=== PATIENT | female | born 1960 | race Caucasian/White ===

== ENCOUNTER 2018-10-12 15:44 | Outpatient (REF) | payer MEDICARE, MEDICAID, SELFPAY ==
[2018-10-12 22:30] LABS: ALT 20 U/L (12-78); AST 14 U/L (15-37); Anion Gap 10.4 mmol/L (3-11); BUN 13 mg/dL (7-18); CO2 26.6 mmol/L (21.0-32.0); CREATININE 1.19 mg/dL (0.55-1.02); Calcium 9.5 mg/dL (8.5-10.1); Chloride 104 mmol/L (98-107); Estimated GFR 46.27 (mL/min/1.73m2); Glucose 101 mg/dL (70-100); HDL Cholesterol 49 mg/dL (40-60); LDL CHOLESTEROL 184 mg/dL (<100); Potassium 4.1 mmol/L (3.5-5.1); Sodium 141 mmol/L (136-145); TSH 3.47 uIU/mL (0.358-3.74)
[2018-10-12 22:41] LABS: Creatine Kinase 55 U/L (26-192)
== END 2018-10-12 16:04 ==
LOC: NCHCN 15:44
PROVIDERS: PCP Nurse Practitioner Family; Visit Provider Nurse Practitioner Family
DX: E78.00 Pure hypercholesterolemia, unspecified (principal); R42 Dizziness and giddiness; R20.9 Unspecified disturbances of skin sensation; K21.9 Gastro-esophageal reflux disease without esophagitis; K22.2 Esophageal obstruction
CPT/HCPCS: 80048; 82550; 83721; 83718; 84443; 84450; 84460

== ENCOUNTER 2018-12-10 15:54 | Outpatient (REF) | payer MEDICARE, MEDICAID, SELFPAY ==
[2018-12-10 21:48] LABS: ALT 23 U/L (12-78); AST 14 U/L (15-37); HDL Cholesterol 66 mg/dL (40-60); LDL CHOLESTEROL 105 mg/dL (<100)
[2018-12-10 22:18] LABS: Creatine Kinase 47 U/L (26-192)
== END 2018-12-10 16:14 ==
LOC: NCHCN 15:54
PROVIDERS: PCP Nurse Practitioner Family; Visit Provider Nurse Practitioner Family
DX: R42 Dizziness and giddiness (principal); R20.9 Unspecified disturbances of skin sensation; E78.00 Pure hypercholesterolemia, unspecified; K21.9 Gastro-esophageal reflux disease without esophagitis; M79.7 Fibromyalgia
CPT/HCPCS: 82550; 83721; 83718; 84450; 84460

== ENCOUNTER 2019-08-02 12:37 | Outpatient (REF) | payer MEDICARE, MEDICAID, SELFPAY ==
[2019-08-02 21:59] LABS: Anion Gap 9.1 mmol/L (3-11); BUN 10 mg/dL (7-18); CO2 27.9 mmol/L (21.0-32.0); CREATININE 0.93 mg/dL (0.55-1.02); Calcium 9.4 mg/dL (8.5-10.1); Chloride 106 mmol/L (98-107); Glucose 98 mg/dL (70-100); Sodium 143 mmol/L (136-145); Vitamin B12 1083 pg/mL (193-986)
== END 2019-08-02 12:57 ==
LOC: NCHCN 12:37
PROVIDERS: PCP Nurse Practitioner Family; Visit Provider Nurse Practitioner Family
DX: R60.9 Edema, unspecified (principal)
CPT/HCPCS: 80048; 82607

== ENCOUNTER 2020-05-01 15:42 | Outpatient (REF) | payer OTHER, MEDICAID, SELFPAY ==
[2020-05-01 19:23] LABS: Abs Immature Grans 0.01 10^3/uL (0.0-0.06); Absolute Basophil Count 0.06 10^3/uL (0.0-0.2); Absolute Eosinophil Count 0.13 10^3/uL (0.0-0.7); Absolute Lymphocyte Count 2.69 10^3/uL (1.2-3.4); Absolute Monocyte Count 0.43 10^3/uL (0.1-0.8); Absolute Neutrophil Count 3.83 10^3/uL (1.2-6.7); Basophils % 0.8; Eosinophils % 1.8; HCT 43.4 % (36.0-46.0); HGB 14.5 g/dL (11.2-15.7); Immature Grans % 0.1; Lymphocytes % 37.6; MCH 31.2 pg (27.0-33.0); MCHC 33.4 % (32.0-36.0); MCV 93.3 fL (80-95); MPV 10.4 fL (8.0-11.0); Neutrophils % 53.7; Nucleated RBC 0 %; Platelet Count 261 10^3/uL (130-400); RBC 4.65 10^6/uL (3.93-5.22); RDW 11.9 % (11.7-14.6); RDW-SD 41.2 fL; WBC 7.15 10^3/uL (4.4-10.8)
[2020-05-01 20:30] LABS: ALT 20 U/L (14-59); AST 16 U/L (15-37); Alkaline Phosphatase 120 U/L (46-116); Anion Gap 10.8 mmol/L (3-11); BUN 15 mg/dL (7-18); Bilirubin, Total 0.4 mg/dL (0.2-1.0); CO2 25.2 mmol/L (21.0-32.0); CREATININE 1.08 mg/dL (0.55-1.02); Calcium 9.3 mg/dL (8.5-10.1); Chloride 105 mmol/L (98-107); Estimated GFR 51.58 (mL/min/1.73m2); Ferritin 55 ng/mL (8-252); Glucose 89 mg/dL (74-106); HDL Cholesterol 64 mg/dL (40-60); LDL CHOLESTEROL 128 mg/dL (<100); Potassium 3.9 mmol/L (3.5-5.1); Sodium 141 mmol/L (136-145); Total Protein 6.9 g/dL (6.4-8.2)
[2020-05-01 20:36] LABS: Vitamin D 25 Total 37.1 ng/ml (30-100)
[2020-05-01 20:42] LABS: Creatine Kinase 93 U/L (26-192)
== END 2020-05-01 16:02 ==
LOC: NCHCN 15:42
PROVIDERS: PCP Nurse Practitioner Family; Visit Provider Nurse Practitioner Family
DX: R53.83 Other fatigue (principal); E78.00 Pure hypercholesterolemia, unspecified; K21.9 Gastro-esophageal reflux disease without esophagitis; D64.9 Anemia, unspecified; M16.11 Unilateral primary osteoarthritis, right hip; M85.88 Other specified disorders of bone density and structure, other site
CPT/HCPCS: 80053; 82306; 82550; 83721; 82728; 83718; 84443; 85025

== ENCOUNTER 2020-11-08 19:59 | Outpatient (REF) | payer OTHER, MEDICAID, SELFPAY ==
[2020-11-08 16:14] LABS: Anion Gap 12.3 mmol/L (3-11); BUN 10 mg/dL (7-18); CO2 25.7 mmol/L (21.0-32.0); Calcium 9.4 mg/dL (8.5-10.1); Chloride 105 mmol/L (98-107); Estimated GFR 56.18 (mL/min/1.73m2); Glucose 89 mg/dL (74-106); Potassium 4.1 mmol/L (3.5-5.1); Sodium 143 mmol/L (136-145); Vitamin B12 556 pg/mL (193-986)
== END 2020-11-08 20:00 | disposition home or self-care (01) ==
LOC: NCHCN 19:59
PROVIDERS: PCP Nurse Practitioner Family; Visit Provider Nurse Practitioner Family
DX: Z79.899 Other long term (current) drug therapy
CPT/HCPCS: 80048; 82607

== ENCOUNTER 2021-05-14 08:58 | Outpatient (REF) | payer OTHER, MEDICAID, SELFPAY ==
[2021-05-14 16:02] LABS: ALT 25 U/L (14-59); AST 19 U/L (15-37); Calculated LDL 96 mg/dL (<100); Cholesterol 190 mg/dL (<200); HDL Cholesterol 73 mg/dL (40-60); Triglyceride 107 mg/dL (<150)
[2021-05-14 16:18] LABS: Creatine Kinase 87 U/L (26-192)
== END 2021-05-14 08:59 | disposition home or self-care (01) ==
LOC: NCHCN 08:58
PROVIDERS: PCP Nurse Practitioner Family; Visit Provider Nurse Practitioner Family
DX: E78.00 Pure hypercholesterolemia, unspecified (principal)
CPT/HCPCS: 80061; 82550; 84450; 84460

== ENCOUNTER 2022-03-12 15:27 | Outpatient (REF) | payer MEDICARE, MEDICAID, SELFPAY ==
[2022-03-12 15:08] LABS: Abs Immature Grans 0.01 10^3/uL (0.0-0.06); Absolute Basophil Count 0.07 10^3/uL (0.0-0.2); Absolute Eosinophil Count 0.15 10^3/uL (0.0-0.7); Absolute Lymphocyte Count 2.39 10^3/uL (1.2-3.4); Absolute Monocyte Count 0.43 10^3/uL (0.1-0.8); Absolute Neutrophil Count 3.91 10^3/uL (1.2-6.7); Eosinophils % 2.2; HCT 43.3 % (36.0-46.0); Immature Grans % 0.1; Lymphocytes % 34.3; MCH 31.7 pg (27.0-33.0); MCHC 34.6 % (32.0-36.0); MCV 92 fL (80-95); MPV 10.6 fL (8.0-11.0); Monocytes % 6.2; Neutrophils % 56.2; Platelet Count 279 10^3/uL (130-400); RBC 4.73 10^6/uL (3.93-5.22); RDW 11.8 % (11.7-14.6); RDW-SD 39.6 fL; WBC 6.96 10^3/uL (4.4-10.8)
[2022-03-12 15:31] LABS: ESR 18 mm/hr (0-30)
[2022-03-12 15:44] LABS: ALT 24 U/L (14-59); AST 19 U/L (15-37); Albumin 3.8 g/dL (3.4-5.0); Alkaline Phosphatase 121 U/L (46-116); Anion Gap 7.1 mmol/L (3-11); BUN 12 mg/dL (7-18); Bilirubin, Total 0.3 mg/dL (0.2-1.0); C-Reactive Protein 0.05 mg/dL (0.0-0.3); CO2 25.9 mmol/L (21.0-32.0); Calcium 9.1 mg/dL (8.5-10.1); Chloride 107 mmol/L (98-107); Glucose 93 mg/dL (74-106); Potassium 4.2 mmol/L (3.5-5.1); Sodium 140 mmol/L (136-145); Total Protein 7.2 g/dL (6.4-8.2)
[2022-03-13 11:13] LABS: Lyme Ab w Rflx to Lyme Confirm Negative (Negative)
[2022-03-14 23:01] LABS: Anaplasma phagocytophilum Negative (Negative); B. miyamotoi PCR Negative (Negative); Babesia divergens/MO-1 Negative (Negative); Babesia duncani Negative (Negative); Babesia microti Negative (Negative); Ehrlichia chaffeensis Negative (Negative); Ehrlichia ewingii/canis Negative (Negative); Ehrlichia muris eauclairensis Negative (Negative)
== END 2022-03-12 15:28 | disposition home or self-care (01) ==
LOC: NCHCN 15:27
PROVIDERS: PCP Nurse Practitioner Family; Visit Provider Nurse Practitioner Family
DX: T14.8XXA Other injury of unspecified body region, initial encounter (principal); W57.XXXA Bitten or stung by nonvenomous insect and other nonvenomous arthropods, initial encounter
CPT/HCPCS: 80053; 85652; 87798; 85025; 86140; 86618

== ENCOUNTER 2022-04-02 20:10 | Outpatient (REF) | payer MEDICARE, MEDICAID, SELFPAY ==
[2022-04-02 16:12] LABS: HDL Cholesterol 67 mg/dL (40-60); LDL CHOLESTEROL 114 mg/dL (<100)
[2022-04-02 16:24] LABS: Creatine Kinase 63 U/L (26-192)
== END 2022-04-02 20:11 | disposition home or self-care (01) ==
LOC: NCHCN 20:10
PROVIDERS: PCP Nurse Practitioner Family; Visit Provider Nurse Practitioner Family
DX: E78.00 Pure hypercholesterolemia, unspecified (principal); R07.89 Other chest pain
CPT/HCPCS: 82550; 83721; 83718

== ENCOUNTER 2022-05-13 18:56 | Outpatient (REF) | payer MEDICARE, MEDICAID, SELFPAY ==
[2022-05-13 17:56] LABS: ALT 27 U/L (14-59); AST 23 U/L (15-37); HDL Cholesterol 73 mg/dL (40-60); LDL CHOLESTEROL 125 mg/dL (<100)
[2022-05-13 18:21] LABS: Creatine Kinase 124 U/L (26-192)
== END 2022-05-13 18:57 | disposition home or self-care (01) ==
LOC: NCHCN 18:56
PROVIDERS: PCP Nurse Practitioner Family; Visit Provider Nurse Practitioner Family
DX: E78.00 Pure hypercholesterolemia, unspecified (principal)
CPT/HCPCS: 82550; 83721; 83718; 84450; 84460

== ENCOUNTER 2022-06-12 15:13 | Outpatient (REF) | payer MEDICARE, MEDICAID, SELFPAY ==
--- NOTE | 2022-06-12 11:30 | PAPFT_PTH ---
PATIENT: Cortney Smallwood LOC: [facility]#:[id number] AGE/SX: 61/F ROOM: RE06/12/[address]: Safia Pedroza : 1960 BED: DIS: 06/12/2022 SPEC #: [id number] RECD: 06/12/22 17:50 STATUS: BELL REJama #: [id number] ANTHONY: 06/12/22 11:[address]: Safia Pedroza DEPT: COUNT INCLUDES THE [facility] Cytology RECD BY: Manasa Barrera ENTERED: 06/12/22 17:50 SP TYPE: PAPFT OTHR DR: Anitha Perry Tissues: 1 - CX/ENDOCX FOR PAP SMEARS Procedures: PAP THIN PREP/UVM Screening HPV DNA PROBE Comments: [id number]
== END 2022-06-12 15:14 | disposition home or self-care (01) ==
LOC: NCHCN 15:13
PROVIDERS: PCP Nurse Practitioner Family; Visit Provider Nurse Practitioner Family
DX: Z12.4 Encounter for screening for malignant neoplasm of cervix (principal); Z11.51 Encounter for screening for human papillomavirus (HPV); Z01.419 Encounter for gynecological examination (general) (routine) without abnormal findings
CPT/HCPCS: 88142; 87624

== ENCOUNTER 2022-09-10 13:29 | Outpatient (REF) | payer MEDICARE, MEDICAID, SELFPAY ==
[2022-09-10 16:27] LABS: Ferritin 81 ng/mL (8-252); Magnesium 2.3 mg/dL (1.8-2.4); TSH 0.74 uIU/mL (0.36-3.74)
== END 2022-09-10 13:30 | disposition home or self-care (01) ==
LOC: NCHCN 13:29
PROVIDERS: PCP Nurse Practitioner Family; Visit Provider Nurse Practitioner Family
DX: G47.00 Insomnia, unspecified (principal)
CPT/HCPCS: 82306; 82728; 83735; 84443

== ENCOUNTER 2023-04-15 10:29 | Outpatient (REF) | payer MEDICARE, SELFPAY ==
[2023-04-15 16:50] LABS: Vitamin D 25 Total 34.8 ng/mL (30-100)
[2023-04-15 16:53] LABS: Ferritin 69 ng/mL (8-252); Vitamin B12 324 pg/mL (193-986)
== END 2023-04-15 10:30 | disposition home or self-care (01) ==
LOC: NCHCN 10:29
PROVIDERS: PCP Nurse Practitioner Family; Visit Provider Nurse Practitioner Family
DX: G47.00 Insomnia, unspecified (principal)
CPT/HCPCS: 82306; 82607; 82728

== ENCOUNTER 2023-07-14 13:32 | Outpatient (REF) | payer MEDICARE, SELFPAY ==
[2023-07-14 17:09] LABS: ALT 19 U/L (14-59); AST 18 U/L (15-37); Creatine Kinase 61 U/L (26-192); HDL Cholesterol 68 mg/dL (40-60); LDL CHOLESTEROL 96 mg/dL (<100)
== END 2023-07-14 13:33 | disposition home or self-care (01) ==
LOC: NCHCN 13:32
PROVIDERS: PCP Nurse Practitioner Family; Visit Provider Nurse Practitioner Family
DX: E78.00 Pure hypercholesterolemia, unspecified (principal)
CPT/HCPCS: 82550; 83721; 83718; 84450; 84460

== ENCOUNTER 2024-08-09 14:51 | Outpatient (REF) | payer MEDICARE, SELFPAY ==
--- OUTSIDE RECORDS SUMMARY | 2024-08-09 15:03 | XMS_ITS | Continuity of Care Document ---
Author Organization [facility] Ambulatory Clinics Address [address] [place] [address] Care Team Providers Care Protein Scientist Name Role Phone MASON KENDRICK Primary Care Physician Encounter [facility] FIN NBR [id number] Date(s): 07/29/23 - 07/29/23 [facility] Ambulatory Clinics [address] [place] [address]- Encounter Diagnosis Left hip pain(Discharge Diagnosis) - 07/29/23 Discharge Disposition: Home or Self Care Attending Physician: Kelsey Castellanos APRN, Referring Physician: MASON KENDRICK Allergies, Adverse Reactions, Alerts Substance Reaction Severity Status morphine Rash Vomiting Moderate Active Assessment and Plan Future Appointments Medications amitriptyline 100 mg oral tablet 4 EA, TAKE 1 TO 2 TABLETS BY MOUTH EVERY NIGHT, 0 Refill(s) Start Date: 06/21/22 Status: Ordered aspirin 81 mg oral capsule 1 Unknown, 0 Refill(s) Start Date: 06/21/22 Status: Ordered B-12 2500 mcg oral tablet 0 Refill(s) Start Date: 06/21/22 Status: Ordered cephalexin 500 mg oral capsule See Instructions, Take 4 capsules by mouth one hour prior to dental work., # 4 cap, 3 Refill(s), Pharmacy: [facility] [employer] [employer] [facility] #[id number] Start Date: 07/02/22 Status: Ordered diclofenac 1% topical gel 0 Refill(s) Start Date: 06/21/22 Status: Ordered Flonase 50 mcg/inh nasal spray 2 sprays, Nasal, BID, 0 Refill(s) Start Date: 06/21/22 Status: Ordered omeprazole 40 mg oral delayed release capsule 180 EA, TAKE 1 CAPSULE BY MOUTH TWICE DAILY, 0 Refill(s) Start Date: 06/21/22 Status: Ordered simvastatin 40 mg oral tablet 1 Unknown, 0 Refill(s) Start Date: 06/21/22 Status: Ordered traZODone 100 mg oral tablet 100 mg = 1 tab, Oral, Daily, 0 Refill(s) Start Date: 07/29/23 Status: Ordered Tylenol Extra Strength 500 mg oral tablet 1,000 mg = 2 tab, Oral, every 6 hr, PRN as needed for pain, 0 Refill(s) Start Date: 07/29/23 Status: Ordered Vitamin D3 1000 intl units oral capsule 2 Unknown, 0 Refill(s) Start Date: 06/21/22 Status: Ordered Zocor 20 mg oral tablet 1 Unknown, 0 Refill(s) Start Date: 06/21/22 Status: Ordered Problem List Condition Confirmation Course Effective Dates Status H ealth Status Informant History of total knee arthroplasty Confirmed Active Osteoarthritis of knee Confirmed Active Osteoarthritis of left knee joint Confirmed Active Procedures Procedure Date Related Diagnosis Body Site Status Arthroscopy of knee with men iscus repair 1 06/11/17 Completed Removal of gallbladder 11/05/90 Co mpleted Tubal ligation 09/03/90 Completed 1CHONDROPLASTY Vital Signs Most recent to oldest [Reference Range]: 1 Peripheral Pulse Rate [60-100 bpm] 68 bp m (07/29/23 9:32 AM) Blood Pressure [90-140/60-90 mmHg] 110/6 4mmHg (07/29/23 9:32 AM) Mean Arterial Pressure, Cuff [70-110 mmH g] 79 mmHg (07/29/23 9:32 AM) Social History Social History Type Response Tobacco Never tobacco user T obacco Use:. Sex Hospital Discharge Instructions Follow Up Care 07/22/2023 15:19:21 With:Kelsey Castellanos APRN, Address: [address] [place], [place] [address]- When:Within 3 Week(s) Comments:Kelsey will call in 3 weeks Physician Outpatient Note * Kelsey Castellanos APRN,: PERFORM Event Display: Office Clinic Note Physician Authored Date: [id number] ALTAGRACIA ZAMAN :1960 Age:62 years Sex:Female Visit Date:07/29/2023 Primary Care Physician: MASON KENDRICK Chief Complaint Left Hip Pain radiating into groin History of Present Illness Altagracia is a very pleasant 62-year-old woman who is well-known??practice. ??She is currently referred back for evaluation of left buttock and hip pain.?? She states she has had trouble in this region for several weeks now.?? There was no precipitating injury or trauma. ??She points to the buttock in the area of the SI joint to describe where the majority of the pain is located, but when it is severe it radiates to the groin.?? She states her range of motion is okay, but she has pain with standing, walking and sitting.?? When pain is severe it can wake her at night.?? In terms of treatment she has used a heating pad??and Tylenol. ??She was recently started on Celebrex which she states has been helpful.?? She is scheduled to see our pain service, but not for several months. Review of Systems Constitutional:?No??fevers,?No??chills,?No??sweats Respiratory:?No??shortness of breath,?No??cough Cardiovascular:?No??Chest pain,?No??palpitations,?No??syncope Gastrointestinal:?Nonausea,?No??vomiting,?No??diarrhea Musculoskeletal:??No??back pain,??No??neck pain,??Positive for??left groin/buttock pain,??No??muscle pain,??No??decreased range of motion Integumentary:?No??rash,?No??pruritus,?No??abrasions Neurologic: Alert & oriented X 4 Psychiatric:?No??anxiety,?No??depression Physical Exam Vitals & Measurements HR:??68??(Peripheral)?? BP:??110/64?? SpO2:??97%?? Pain Score:??8?? The patient is alert and oriented x3. ??Pleasant and cooperative. ??Well-dressed and well-groomed.?? Appears stated age and is well-nourished and well- developed.?? Examination of the left hip is without deformity. ??Skin is intact. ??There is no erythema or warmth. ??No signs or symptoms of infection.?? There is point tenderness overlying the greater trochanter. ??She has full range of motion of the hip without exacerbation of groin or thigh pain. ??Thigh and calf compartments are soft and nontender.?? The left lower extremity is neurovascular intact distally. Procedure Risks and benefits of injection discussed with the patient today. ??Patient verbalized understanding and would like to proceed. The??left??hip is exposed, the ASIS is identified with ultrasound, I moved distally to identify thefemoroacetabular joint. ??The probe was then moved longitudinally to again identify the femoroacetabular joint and the attachment of the hip capsule at the femoral neck. ??The skin is prepped with ChloraPrep and 4 cc of 1% lidocaine with epi is infiltrated to the skin and the deeper tissues. ??The skin is reprepped with ChloraPrep, 22-gauge spinal needle is introduced into the hip capsule at the femoral neck via ultrasound guidance. ??The hip is then injected intra-articularly with a 4??cc 1% lidocaine plain and 40 mg of Kenalog.?? The patient tolerated the procedure very well and a dry, sterile dressing is applied. ??The patient is asked to avoid bathing/showering/swimming/hot tubs for 24 hours??to decrease infection risk.?? Assessment/Plan 1.??Left hip pain??M25.552 Altagracia is a pleasant 62-year-old woman who has been struggling with left buttock and groin pain for several weeks. ??Recent x-rays have shown??mild arthritis at the hip joint.?? However based on her history and exam I feel that likely the primary pain generator is the lumbar spine??and SI joint region. ??This is discussed with the patient.?? However she does have groin pain, so I did offer her an ultrasound-guided intra-articular injection??as both a diagnostic and therapeutic approach. ??Shewould like to give this a try today.?? If she responds to this injection, then we can focus treatment on the left hip joint. ??If she does not respond to the injection,??then??treatment will be focused on the lumbar spine??and SI joint region. ??I have encouraged her to keep her appointment with the pain service. ??She will give me a call in a few weeks to let me know how she has responded to thehip injection.?? She may continue with all other supportive care. ??She is in agreement with the above plan and is encouraged to contact the office at anytime with questions or concerns. ??I spent 20minutes in reviewing the record, seeing the patient and documenting in the medical record. Ordered: Kenalog-40, 40 mg, Intra-articular, Once, First Dose: 07/29/23 10:12:00 EST, Stop Date: 07/29/23 10:12:00 EST, Physician Stop, Routine ?? Follow Up Instructions With When Contact Information Kelsey Castellanos APRN, In [address] [place] [address]- Additional Instructions: Kelsey will call in 3 weeks Problem List/Past Medical History Ongoing History of total knee arthroplasty Osteoarthritis of knee Osteoarthritis of left knee joint Historical No qualifying data Procedure/Surgical History ???Arthroscopy of knee with meniscus repair (06/12/2017)???Removal of gallbladder (11/06/1990)???Tubal ligation (09/04/1990) Medications amitriptyline 100 mg oral tablet aspirin 81 mg oral capsule B-12 2500 mcg oral tablet cephalexin 500 mg oral capsule, See Instructions, 3 refills diclofenac 1% topical gel Flonase 50 mcg/inh nasal spray, 2 sprays, Nasal, BID Kenalog-40, 40 mg, Intra-articular, Once omeprazole 40 mg oral delayed release capsule simvastatin 40 mg oral tablet traZODone 100 mg oral tablet, 100 mg= 1 tab, Oral, Daily Tylenol Extra Strength 500 mg oral tablet, 1000 mg= 2 tab, Oral, every 6 hr, PRN Vitamin D3 1000 intl units oral capsule Zocor 20 mg oral tablet Allergies morphine??(Rash, Vomiting) Social History Alcohol Past Electronic Cigarette/Vaping Electronic Cigarette Use: Never. Home/Environment Home equipment: CPAP unit. Substance Use Marijuana, Daily Tobacco Never tobacco user Tobacco Use:. Family History Diabetes mellitus: Mother. Hypertension: Mother. Diagnostic Results Diagnostic Study Interpretation: X-rays of the pelvis and left hip from July 16, 2023 from [facility] have been pushed to the [facility] and are personally reviewed.?? No acute fracture or dislocation.?? Femoroacetabular joint space iswell-preserved, but small osteophytes are noted indicating early degenerative changes. Electronically Signed on 07/29/23 10:13 AM Kelsye Castellanos APRN, Patient Care team information Care Team Personnel Name: MASON KENDRICK Position: No Access Member Role: Primary Care Physician Address: Address: [address] [place], [place] [address] Name: Carmina Becker APRN Position: Physician Member Role: Nurse Practitioner Address: Address: [address] [place] [id number]
--- OUTSIDE RECORDS SUMMARY | 2024-08-09 15:03 | XMS_ITS | Encounter Summary ---
Author Organization [facility] Address [address] [place] [address] Care Team Providers Care Instructor Trainer Canine Service Name Role Phone GarrardAnitha malloy JOSÉ MANUEL Primary Care Provider [phone] Encounter Details Date Type Department Care Team (Late st Contact Info) Description 05/24/2013 Results Only [facility] Laboratory Services - [facility] ([facility]) [address] [place], [place] [id number] Ld Salazar MD [address] [place] [address] Social History Tobacco Use Types Packs/Day Years Used Date Smoking Tobacco: Never Assessed Comments Unknown Sex and Gender Information Value Date Recorded Sex Assigned at Not on file Legal Sex Female 18:27 EST Gender Identity Not on file Sexual Orientation Not on file documented as of this encounter Plan of Treatment Not on file documented as of this encounter Procedures Procedure Name Priority Date/Time Associated Diagnosis Comments SURGICAL PATHOLOGY Routine 05/24/2013 10 :14 EDT documented in this encounter Results * SURGICAL PATHOLOGY (05/24/2013 10:14 EDT) Pathology Report: SURGICAL PATHOLOGY REPORT Reports generated via electronic interface contain original data; however they are lacking the format of the original report. Caution should be taken when reading/interpreti ng unformatted reports. Name: ? ALTAGRACIA ZAMAN ? Accession #: ? [id number] ? : ? 1960 (Age: 52) ??F ? Collect Date: ? 05/24/2013 ? Location: ? [facility] ? Receive Date: ? 05/25/2013 ? Provider: LD SALAZAR MD Copy to: ANITHA VALE LAST TURNER ? Final Pathologic Diagnosis: COLON, SIGMOID, POLYPS, BIOPSIES: - ??Hyperplastic polyps with mucosal prolapse changes and prominent lymphoid aggregates. ??See comment. Comment: ? Deeper levels have been examined. Document reviewed and electronically signed by: ELIZABETH HOWE MD Report ??Date: 05/31/2013 09:43 By the signature above, the attending physician certifies that he/she has personally conducted a gross and/or microscopic examination of the described specimens and rendered or confirmed the above diagnosis. Specimen(s) Received: Sigmoid polyps x3 Clinical History: Constipation Gross Description: ? Received in formalin labelled with proper patient identification (initials D, G) and 1. sigmoid polyps x3 are three pink-jackson tissues (0.4 x 0.2 x 0.2 cm to 0.6 x 0.3 x 0.2 cm). Entirely submitted in 1. Genesis Estrada 05/25/2013 01:54 PM End of Report [facility] 05/24/2013 10:1 4 EDT 05/25/2013 10:14 EDT us Ld Salazar MD PATHOLOGY ORDERABLES Final Resul t [facility] [address] [place] [address] documented in this encounter Visit Diagnoses Not on filedocumented in this encounter Care Teams Instructor Trainer Canine Service Relationship Specialty Start Date End Date Anitha Vale NP [facility] [address] [place] [address] PCP - General 04/14/13 01/12/22 documented as of this encounter
--- OUTSIDE RECORDS SUMMARY | 2024-08-09 15:03 | XMS_ITS | Referral Summary ---
Author Organization [facility] Address [address] [place] [address] Care Team Providers Care Passenger Flagman Name Role Phone Safia Pedroza TECHNICIAN TERMINAL AND REPEATER Primary Care Provider [phone] Social History Tobacco Use Types Packs/Day Years Used Date Smoking Tobacco: Never Assessed Comments Unknown Sex and Gender Information Value Date Recorded Sex Assigned at Not on file Legal Sex Female 18:27 EST Gender Identity Not on file Sexual Orientation Not on file Plan of Treatment Not on file Insurance [employer] MEDICARE [employer] MED[employer]ARE Care Teams Passenger Flagman Relationship Specialty Start Date End Date Safia Pedroza NP [address] [place] [address] PCP - General 01/13/22
--- OUTSIDE RECORDS SUMMARY | 2024-08-09 15:03 | XMS_ITS | Encounter Summary ---
Author Organization [facility] Address [address] [place] [address] Care Team Providers Care Cement Mason Apprentice Name Role Phone Unavailable Primary Care Provider Unavailabl e Encounter Details Date Type Department Care Team (Late st Contact Info) Description 08/29/2003 Results Only [facility] - Map conversion [address] [place] [address] Anitha Vale, THREADING MACHINE OPERATOR [facility] [address] [place], [place] [phone] Social History Tobacco Use Types Packs/Day Years [...] Procedure Name Priority Date/Time Associated Diagnosis Comments CYTOPATHOLOGY Routine 08/29/2003 0:00 EST documented in this encounter Results * CYTOPATHOLOGY (08/29/2003 0:00 EST) Pathology Report: CYTOPATHOLOGY REPORT Reports generated via electronic interface contain original data; however they are lacking the format of the original report. Caution should be taken when reading/interpreti ng unformatted reports. Name: ? ALTAGRACIA ZAMAN ? Accession #: ? [id number] : ? 1960 (Age: 43) ??F ?Collect Date: ? 08/29/2003 Location: ? [facility] ? Receive Date: ? 08/31/2003 Provider: ?ANITHA VALE THREADING MACHINE OPERATOR Copy to: ? Specimen/Source: ?ThinPrep Pap Test, Cervix/Endocervix Last Menstrual Period: ? 08/09/03 ? SPECIMEN ADEQUACY ? Satisfactory for Evaluation - transformation zone component present - scant squamous epithelial component secondary to excessive mucus GENERAL CATEGORIZATION ? Negative for Intraepithelial Lesion or Malignancy ? Document reviewed and electronically signed by: ? LIZ Fraser(ASCP) ? Report Date: ??09/01/2003 11:21 End of Report [facility] 08/29/2003 08/31/2003 us Anitha Vale THREADING MACHINE OPERATOR PATHOLOGY ORDERABLES Final Resu lt [facility] [address] [place] [address] documented in this encounter Visit Diagnoses Not on filedocumented in this encounter
--- OUTSIDE RECORDS SUMMARY | 2024-08-09 15:03 | XMS_ITS | Encounter Summary ---
Author Organization [facility] Address [address] [place] [address] Care Team Providers Care Market Reporter Name Role Phone Anitha Vale ASSISTANT PRODUCT MANAGER Primary Care Provider [phone] Encounter Details Date Type Department Care Team (Late st Contact Info) Description 06/02/2017 Results Only [facility] [phone] Anitha Vale, ASSISTANT PRODUCT MANAGER [facility] [address] [place], [place] [phone] Social History Tobacco Use Types Packs/Day Years [...] Procedure Name Priority Date/Time Associated Diagnosis Comments PAP TEST- RESULT ONLY Routine 06/02/2017 0:00 EDT documented in this encounter Results * PAP TEST- RESULT ONLY (06/02/2017 0:00 EDT) Pathology Report: CYTOPATHOLOGY REPORT Reports generated via electronic interface contain original data; however they are lacking the format of the original report. Caution should be taken when reading/interpreti ng unformatted reports. Name: ? ALTAGRACIA ZAMAN ? Accession #: ? [id number] ? : ? 1960 (Age: 56) ??F ?Collect Date: ? 06/02/2017 ? Location: ? [facility] ? Receive Date: ? 06/05/2017 ? Provider: ANITHA VALE ASSISTANT PRODUCT MANAGER Copy to: ? Final Report SPECIMEN ADEQUACY ? Satisfactory for Evaluation - transformation zone component present GENERAL CATEGORIZATION ? Negative for Intraepithelial Lesion or Malignancy ?? Last Menstrual Period: 7 + years Hormonal/Contracep tive status: None Other: Professor Of Music Clinical/Treatment Hx - None Specimen/Source: ??Pap Test, Cervix/Endocervix, ThinPrep Imaging System with manual evaluation Document reviewed and electronically signed by: ? Pete Zuniga, CT(ASCP) ? Report ??Date: 06/13/2017 15:03 HPV with Pap Test ? Date Ordered: ? 06/13/2017 ? Status: ?? Signed Out ?Date Complete: ? 06/16/2017 ? By: ??System Interface ? Date Reported: ? 06/16/2017 ? Interpretation RESULT: Negative for HPV. No E6 or E7 mRNA is detected from HPV types 16,18,31,33,35, 39,45,51,52,56,58, 59,66, and 68 by yard specialist mediated amplification. Comments Document reviewed and electronically signed by: ? System Interface ? Report date: 06/16/2017 By the signature above, the attending physician certifies that he/she has personally conducted a gross and/or microscopic examination of the described specimens and rendered or confirmed the above diagnosis. End of Report [facility] 06/02/2017 06/05/2017 us Anitha Vale ASSISTANT PRODUCT MANAGER PATHOLOGY ORDERABLES Final Resu lt [facility] [address] [place] [address] documented in this encounter Visit Diagnoses Not on filedocumented in this encounter Care Teams Market Reporter Relationship Specialty Start Date End Date Anitha Vale, ASSISTANT PRODUCT MANAGER [facility] [address] [place] [address] PCP - General 04/14/13 01/12/22 documented as of this encounter
--- OUTSIDE RECORDS SUMMARY | 2024-08-09 15:03 | XMS_ITS | Encounter Summary ---
Author Organization [facility] Address [address] [place] [address] Care Team Providers Care Trial Consultant Name Role Phone Unavailable Primary Care Provider Unavailabl e Encounter Details Date Type Department Care Team (Late st Contact Info) Description 04/12/2013 Results Only [facility] Laboratory Services - [facility] ([facility] [address] [place], [place] [phone] Sisi Rosas MD [address] [place] [address] [place] [address] Social History Tobacco Use Types Packs/Day Years [...] Date/Time Associated Diagnosis Comments SURGICAL PATHOLOGY Routine 04/12/2013 8:19 EDT documented in this encounter Results * SURGICAL PATHOLOGY (04/12/2013 8:19 EDT) Pathology Report: SURGICAL PATHOLOGY REPORT Reports generated via electronic interface contain original data; however they are lacking the format of the original report. Caution should be taken when reading/interpreti ng unformatted reports. Name: ? ALTAGRACIA ZAMAN ? Accession #: ? [id number] ? : ? 1960 (Age: 52) ??F ? Collect Date: ? 04/12/2013 ? Location: ? [facility] ? Receive Date: ? 04/13/2013 ? Provider: SISI ROSAS MD Copy to: SERGIO VALE HEAD GROWER ? Final Pathologic Diagnosis: ENDOMETRIUM, BIOPSY: - ??Strips of inactive endometrium with papillary syncytial metaplasia. - ??Rare strips of benign endocervical epithelium. Document reviewed and electronically signed by: ELIZABETH HOWE MD Report ??Date: 04/14/2013 15:50 By the signature above, the attending physician certifies that he/she has personally conducted a gross and/or microscopic examination of the described specimens and rendered or confirmed the above diagnosis. Specimen(s) Received: Endo bx (endometrium) Clinical History: PMB Gross Description: ? Received in formalin labelled with proper patient identification (initials D, G) and endometrium is a 1.5 x 0.8 x 0.2 cm aggregate of dark brown, slightly firm hemorrhagic tissue. The specimen is submitted entirely as 1. Koko Kline 04/13/2013 10:20 AM End of Report [facility] 04/12/2013 8:19 EDT 04/13/2013 8:19 EDT us Sisi Rosas MD PATHOLOGY ORDERABLES Final Resu lt [facility] [address] [place] [address] documented in this encounter Visit Diagnoses Not on filedocumented in this encounter
--- OUTSIDE RECORDS SUMMARY | 2024-08-09 15:03 | XMS_ITS | Encounter Summary ---
Author Organization [facility] Address [address] [place] [address] Care Team Providers Care Diesel Engine Mechanic Apprentice Name Role Phone Unavailable Primary Care Provider Unavailabl e Encounter Details Date Type Department Care Team (Late st Contact Info) Description 02/01/2013 Results Only [facility] Laboratory Services - [facility] ([facility]) [address] [place], [place] [address] Anitha Vale, JOSÉ MANUEL [facility] [address] [place], [place] [phone] Social History Tobacco Use Types Packs/Day Years [...] Diagnosis Comments PAP TEST- RESULT ONLY Routine 02/01/2013 0:00 EDT documented in this encounter Results * PAP TEST- RESULT ONLY (02/01/2013 0:00 EDT) Pathology Report: CYTOPATHOLOGY REPORT Reports generated via electronic interface contain original data; however they are lacking the format of the original report. Caution should be taken when reading/interpreti ng unformatted reports. Name: ? ALTAGRACIA ZAMAN ? Accession #: ? [id number] : ? 1960 (Age: 52) ??F ?Collect Date: ? 02/01/2013 Location: ? [facility] ? Receive Date: ? 02/02/2013 Provider: ?ANITHA VALE TEXTILE MACHINERY INSTRUCTOR Copy to: ? Specimen/Source: ?Pap Test, Source Not Provided, ThinPrep Imaging System with manual evaluation Last Menstrual Period: ? 08/26 Other: ? Additional clinical information: abnormal vaginal bleeding, spotting since 01/23/13 ? SPECIMEN ADEQUACY ? Satisfactory for Evaluation - transformation zone component present - scant squamous epithelial component GENERAL CATEGORIZATION ? Negative for Intraepithelial Lesion or Malignancy INTERPRETATION ? Reactive cellular changes associated with inflammation present (includes repair). ? Document reviewed and electronically signed by: ? TESSIE BIRMINGHAM MD ? Report Date: ??02/09/2013 13:55 End of Report [facility] 02/01/2013 02/02/2013 us Anitha Vale NP PATHOLOGY ORDERABLES Final Resu lt [facility] [address] [place] [address] documented in this encounter Visit Diagnoses Not on filedocumented in this encounter
--- OUTSIDE RECORDS SUMMARY | 2024-08-09 15:03 | XMS_ITS | Encounter Summary ---
Author Organization [facility] Address [address] [place] [address] Care Team Providers Care Fleet Driver Name Role Phone TiogaAnitha malloy JOSÉ MANUEL Primary Care Provider [phone] Encounter Details Date Type Department Care Team (Late st Contact Info) Description 02/26/2019 Results Only [facility] [phone] Alan Toledo MD [address] [place] [address] Social History Tobacco Use Types Packs/Day Years [...] Date/Time Associated Diagnosis Comments SURGICAL PATHOLOGY Routine 02/26/2019 21 :08 EDT documented in this encounter Results * SURGICAL PATHOLOGY (02/26/2019 21:08 EDT) Pathology Report: SURGICAL PATHOLOGY REPORT Reports generated via electronic interface contain original data; however they are lacking the format of the original report. Caution should be taken when reading/interpreting unformatted reports. Name: ? ALTAGRACIA ZAMAN ? Accession #: ? [id number] ? : ? 1960 (Age: 58) ??F ? Collect Date: ? 02/26/2019 ? Location: ? [facility] ? Receive Date: ? 02/26/2019 ? Provider: ALAN TOLEDO MD Copy to: ? Final Pathologic Diagnosis: A. STOMACH, ANTRUM, BIOPSIES: - One portion of antral type mucosa with reactive changes - On portion of goblet cell containing mucosa (see comment) B. RECTUM, BIOPSIES: - Hyperplastic polyp and lymphoid aggregate Comment: There is goblet cell containing mucosa with focal villiform morphology and underlying small clusters of mucinous glands. This could represent intestinal metaplasia of antral mucosa, however, it could also be normal mucosa from the pyloric region of the stomach where gastric mucosa transitions to small intestinal type mucosa. Clinical/endoscopic correlation is needed. No active inflammation is present. No dysplasia is present. Dairy Nutrition Consultant slides of this case were reviewed at the intradepartmental consultation conference. Dr. Saez 03/02/2019 9:42 AM Document reviewed and electronically signed by: LINDA SAEZ MD Report ??Date: 03/02/2019 15:59 By the signature above, the attending physician certifies that he/she has personally conducted a gross and/or microscopic examination of the described specimens and rendered or confirmed the above diagnosis. Specimen(s) Received: A. ??Antrum B. ??Rectal polyps Clinical History: Esophageal stricture, screening, history of polyps; clinical diagnosis code: K22.2, Z12.11 Gross Description: A. ?Received in formalin labelled with proper patient identification (initials D, G) and antrum are two pink-jackson tissues (0.3 x 0.2 x 0.2 cm and 0.3 x 0.3 x 0.2 cm). Entirely submitted in A1. B. ?Received in formalin labelled with proper patient identification (initials D, G) and rectal polyps are three pink-jackson tissues (0.3 x 0.2 x 0.1 cm, 0.3 x 0.2 x 0.2 cm and 0.4 x 0.2 x 0.2 cm). Entirely submitted in B1. Dr. Beard 02/27/2019 9:57 AM End of Report [facility] 02/26/2019 21:0 8 EDT 02/26/2019 21:08 EDT us Alan Toledo MD PATHOLOGY ORDERABLES Final Res ult [facility] [address] [place] [address] documented in this encounter Visit Diagnoses Not on filedocumented in this encounter Care Teams Fleet Driver Relationship Specialty Start Date End Date Anitha Perry, JOSÉ MANUEL [facility] [address] [place] [address] PCP - General 04/14/13 01/12/22 documented as of this encounter
--- OUTSIDE RECORDS SUMMARY | 2024-08-09 15:03 | XMS_ITS | Continuity of Care Document ---
Author Organization [facility] Address [address] [place] [address] Care Team Providers Care Electric Wirer Name Role Phone MASON KENDRICK Primary Care Physician Encounter [facility] NBR [id number] Date(s): 11/20/23 - 11/20/23 [facility] [address] [place] [address]- Discharge Disposition: Home or Self Care Attending Physician: Angelique Turner DO Referring Physician: MASON KENDRICK Allergies, Adverse Reactions, Alerts Substance Reaction Severity Status morphine Rash Vomiting Moderate Active Medications amitriptyline 100 mg oral tablet 4 [...] work., # 4 cap, 3 Refill(s), Pharmacy: [id number] Start Date: 07/02/22 Status: Ordered diclofenac 1% [...] Co mpleted Tubal ligation 09/03/90 Completed 1CHONDROPLASTY Social History Social History Type Response Tobacco Never tobacco user T obacco Use:. Sex Patient Care team information Care Team Personnel Name: MASON KENDRICK Position: No Access Member Role: Primary Care Physician Address: Address: [address] [place], [place] [address] Name: Carmina Becker APRN Position: Physician Member Role: Nurse Practitioner Address: Address: [address] [place] [phone]
--- OUTSIDE RECORDS SUMMARY | 2024-08-09 15:03 | XMS_ITS | Continuity of Care Document ---
Author Organization [facility] Address [address] [place] [phone] Care Team Providers Care Handle Assembler Name Role Phone MARILOUGerardo MASON Gerardo Primary Care Physician Encounter [facility] FIN NBR [id number] Date(s): 06/21/22 - 06/21/[address] [address] [place] Encounter Diagnosis Pain in left knee(Discharge Diagnosis) - 06/21/22 Discharge Disposition: Home or Self Care Attending Physician: Kelsey Castellanos APRN, Admitting Physician: Kelsey Castellanos APRN, Referring Physician: Kelsey Castellanos APRN, Allergies, Adverse Reactions, Alerts Substance Reaction Severity Status morphine Rash Vomiting Moderate Active Medications Adderall XR 10 mg oral capsule, extended release 1 Unknown, 0 Refill(s) Start Date: 06/21/22 Status: Ordered amitriptyline 100 mg oral tablet 4 EA, TAKE 1 TO 2 TABLETS BY MOUTH EVERY NIGHT, 0 Refill(s) Start Date: 06/21/22 Status: Ordered aspirin 81 mg oral capsule 1 Unknown, 0 Refill(s) Start Date: 06/21/22 Status: Ordered B-12 2500 mcg oral tablet 0 Refill(s) Start Date: 06/21/22 Status: Ordered diclofenac 1% topical gel 0 Refill(s) Start Date: 06/21/22 Status: Ordered Flonase 50 mcg/inh nasal spray 2 sprays, Nasal, BID, 0 Refill(s) Start Date: 06/21/22 Status: Ordered MiraLax 0 Refill(s) Start Date: 06/21/22 Status: Ordered omeprazole 40 mg oral delayed release capsule 180 EA, TAKE 1 CAPSULE BY MOUTH TWICE DAILY, 0 Refill(s) Start Date: 06/21/22 Status: Ordered promethazine 25 mg oral tablet BID, 1 Unknown, 0 Refill(s) Start Date: 06/21/22 Status: Ordered simvastatin 40 mg oral tablet 1 Unknown, 0 Refill(s) Start Date: 06/21/22 Status: Ordered Vitamin D3 1000 intl units [...] Co mpleted Tubal ligation 09/03/90 Completed 1CHONDROPLASTY Results Radiology Reports * Exam Date Time Procedure Performing Provider Status 06/21/22 10:53 AM XR Knee Complete 4+ Views Left Bhavna Rothman; Auth (Verified) Notes: (XR Knee Complete 4+ Views Left) Reason For Exam: BILATERAL KNEE PAIN XR Knee Complete 4+ Views Left EXAM DESCRIPTION: XR Knee Complete 4+ Views Left 06/21/2022 INDICATION: BILATERAL KNEE PAIN COMPARISON: 09/27/2020 FINDINGS: No acute fracture, dislocation or bone destructive process. Joint spaces are maintained. No radiographic foreign bodies are seen. IMPRESSION: 1. No acute fracture, dislocation or bone destructive process. JOB #: [id number] Final Signed by: Ernesto Mathur MD Signed (Electronic Signature): 06/21/2022 11:00 am * Exam Date Time Procedure Performing Provider Status 06/21/22 10:53 AM XR Knee Complete 4+ Views Right Bhavna Mccann; Auth (Verified) Notes: (XR Knee Complete 4+ Views Right) Reason For Exam: BILATERAL KNEE PAIN XR Knee Complete 4+ Views Right EXAM DESCRIPTION: XR Knee Complete 4+ Views Right 06/21/2022 INDICATION: BILATERAL KNEE PAIN COMPARISON: 09/27/2020 IMPRESSION: Status post right total knee arthroplasty with stable satisfactory appearance. No focal lytic or destructive changes. No acute fracture or dislocation. JOB #: [id number] Final Signed by: Ernesto Mathur MD Signed (Electronic Signature): 06/21/2022 11:00 am Social History Social History Type Response Tobacco Never tobacco user T obacco Use:. Sex XR Knee - right GE 4 Views * Ernesto Mathur MD: VERIFY, VERIFY Event Display: Report EXAM DESCRIPTION: XR Knee Complete 4+ Views Right 06/21/2022 INDICATION: BILATERAL KNEE PAIN COMPARISON: 09/27/2020 IMPRESSION: Status post right total knee arthroplasty with stable satisfactory appearance. No focal lytic or destructive changes. No acute fracture or dislocation. JOB #: [id number] Final Signed by: Ernesto Mathur MD Signed (Electronic Signature): 06/21/2022 11:00 am XR Knee - left GE 4 Views * Ernesto Mathur MD: VERIFY, VERIFY Event Display: Report EXAM DESCRIPTION: XR Knee Complete 4+ Views Left 06/21/2022 INDICATION: BILATERAL KNEE PAIN COMPARISON: 09/27/2020 FINDINGS: No acute fracture, dislocation or bone destructive process. Joint spaces are maintained. No radiographic foreign bodies are seen. IMPRESSION: 1. No acute fracture, dislocation or bone destructive process. JOB #: [id number] Final Signed by: Ernesto Mathur MD Signed (Electronic Signature): 06/21/2022 11:00 am Patient Care team information Personnel Name: MARILOUGerardo MASON K Address: Address: [address] [place] [id number] [place] [address]
--- OUTSIDE RECORDS SUMMARY | 2024-08-09 15:03 | XMS_ITS | Encounter Summary ---
Author Organization [facility] Address [address] [place] [address] Care Team Providers Care Hay Buckler Name Role Phone Safia Pedroza LOAN AND CREDIT MANAGER Primary Care Provider [phone] Encounter Details Date Type Department Care Team (Late st Contact Info) Description 03/13/2022 Lab Requisition [facility] Pathology & Laboratory Medicine - [address] [address] Aneesh Aldrich, [address] [id number] Disorder of the skin and subcutaneous tissue, unspecified Social History Tobacco Use Types Packs/Day Years [...] Priority Date/Time Associated Diagnosis Comments SURGICAL PATHOLOGY Today 03/12/2022 15 :45 EDT Disorder of the skin and subcutaneous tissue, unspecified documented in this encounter Results * SURGICAL PATHOLOGY (03/12/2022 15:45 EDT) Note to Patient The following pathology results have been interpreted by your pathologist and may be available to you before your health provider has had the opportunity to review them. Please allow time for your provider to receive these results and explore management options, if applicable. 03/15/2022 11:27 EDT [facility] Final Diagnosis A. SKIN OF CHEST, LEFT, EXCISION: - Follicular cyst, infundibular type. 03/15/2022 11:27 [facility] Attestation By the signature below, the attending physician certifies that they have 1) personally conducted a gross and/or microscopic examination of the described specimen(s), and/or personally interpreted the results of laboratory testing of the described specimen(s), and 2) personally rendered or confirmed the above diagnosis. 03/15/2022 11:27 [facility] at 1127 Microscopic Description There is a dermal cyst that is lined by stratified squamous epithelium that matures through a granular layer. The cyst is filled with laminated orthokeratin. 03/15/2022 11:27 [facility] Clinical History Skin cyst; clinical diagnosis code: L98.9 03/15/2022 11:27 [facility] Gross Description A. Received in formalin labelled with proper patient identification (initials D, G) and left chest cyst is a subcutaneous nodular tissue, 1.4 x 1.4 x 1.2 cm. There is an overlying elliptical skin present, 1.8 x 0.6 cm. The margins are inked. Sections show an intact cyst, 1.0 cm in diameter. The cyst cavity contains semi-solid perales-white material. A asset protection representative central section is submitted in A1. RERE RIDDLE(ASCP) 03/14/2022 7:42 03/15/2022 11:27 [facility] Performing Lab [facility] 03/15/2022 11:27 [facility] Scanned Images 03/15/2022 11:27 [facility] Tissue TISSUE SPECIMEN FROM SKIN / Unknown 03/12/2022 15:45 EDT 03/13/2022 17:25 EDT us Aneesh Aldrich DO PATHOLOGY ORDERABLES Fi nal Result [facility] [address] [place] [address] documented in this encounter Visit Diagnoses Diagnosis Disorder of the skin and subcutaneous tissue, unspecified documented in this encounter Care Teams Hay Buckler Relationship Specialty Start Date End Date Safia Pedroza NP [address] [place] [phone] PCP - General 01/13/22 documented as of this encounter
--- OUTSIDE RECORDS SUMMARY | 2024-08-09 15:03 | XMS_ITS | Encounter Summary ---
Author Organization [facility] Address [address] [place] [address] Care Team Providers Care Customs Inspector Name Role Phone Safia Pedroza STRANNER Primary Care Provider [phone] Encounter Details Date Type Department Care Team (Latest Contact Info) Description 02/14/2022 Lab Requisition [facility] - [place] [address] [place] [id number] Johnie Rebolledo MD [address] [place] [phone] Dysphagia, pharyngoesophageal phase; Heartburn; Gastro-esophageal reflux disease without esophagitis; Other constipation Social History Tobacco Use Types Packs/Day Years [...] Date/Time Associated Diagnosis Comments SURGICAL PATHOLOGY Today 02/13/2022 14:12 EDT Dysphagia, pharyngoesophageal phase Heartburn Gastro-esophageal reflux disease without esophagitis Other constipation documented in this encounter Results * SURGICAL PATHOLOGY (02/13/2022 14:12 EDT) Note to Patient The following pathology results have been interpreted by your pathologist and may be available to you before your health provider has had the opportunity to review them. Please allow time for your provider to receive these results and explore management options, if applicable. 02/15/2022 12:11 [facility] Final Diagnosis A. STOMACH, ANTRUM, BIOPSY: - Antral type mucosa with changes of a mild reactive (chemical) gastropathy. - Rare foci of intestinalized epithelium present. See comment. - No evidence of Helicobacter pylori on routine H&E stain. B. STOMACH, BODY, BIOPSY: - Oxyntic mucosa with no significant pathologic change. - No intestinal metaplasia or dysplasia. - No evidence of Helicobacter pylori on routine H&E stain. C. ESOPHAGUS, DISTAL, BIOPSY: - Benign squamous mucosa with mild chronic inflammation and reactive change, compatible with mild reflux esophagitis. D. ESOPHAGUS, MID, BIOPSY: - Fragments of benign squamous mucosa with patchy mild chronic inflammation and reactive change. - No significant increase in intraepithelial eosinophils. 02/15/2022 12:11 [facility] Diagnosis Comment Specimen A: The stomach antrum biopsy contains rare foci of intestinalized epithelium. This finding may simply represent transitional (gastro-enteric) epithelium if the tissue was sampled from the most distal area of stomach. However, correlation with endoscopic findings and the anatomic location of the biopsy site is suggested to exclude true intestinal metaplasia. 02/15/2022 12:11 [facility] Attestation By the signature below, the attending physician certifies that they have 1) personally conducted a gross and/or microscopic examination of the described specimen(s), and/or personally interpreted the results of laboratory testing of the described specimen(s), and 2) personally rendered or confirmed the above diagnosis. 02/15/2022 12:11 [facility] at 1211 Clinical History Gastric erythema 02/15/2022 12:11 [facility] Gross Description A. Received in formalin labeled ? Cortney Cl? and ? antrum Bx? are 2 mucosal tissue fragment measuring 0.3 x 0.1 x 0.1 cm and 0.5 x 0.2 x 0.1 cm. Entirely submitted in 1 cassette. B. Received in formalin labeled ? Cortney Cl? and ? gastric body Bx are 3 mucosal tissue fragments ranging in size from 0.1 x 0.1 x 0.1 cm up to 0.7 x 0.1 x 0.1 cm. Entirely submitted in 1 cassette C. Received in formalin labeled ? Cortney Cl? and ? distal esophagus are 2 mucosal tissue fragments each measuring 0.3 x 0.2 x 0.1 cm. Entirely submitted in 1 cassette. D. Received in formalin labeled ? Cortney Cl? and ? mid esophagus? are 3 mucosal tissue fragments ranging in size from 0.2 x 0.2 x 0.1 cm up to 0.3 x 0.2 x 0.1 cm. Entirely submitted in 1 cassette MALINA FOLSOM 02/14/2022 10:47 02/15/2022 12:11 EDT [facility] Performing Lab [facility] 11/2021 12:11 EDT [facility] Scanned Images 02/15/2022 12:11 EDT [facility] Tissue ENTIRE ESOPHAGUS / Unknown 02/13/2022 14:12 EDT 02/14/2022 8:18 EDT Tissue specimen (specimen) GASTRIC CORPUS STRUCTURE / Unknown 02/13/2022 14:12 EDT 02/14/2022 8:18 EDT Tissue specimen (specimen) ESOPHAGEAL STRUCTURE / Unknown 02/13/2022 14:12 EDT 02/14/2022 8:18 EDT Tissue specimen (specimen) ESOPHAGEAL STRUCTURE / Unknown 02/13/2022 14:12 EDT 02/14/2022 8:18 EDT us Johnie Rebolledo MD PATHOLOGY ORDERABLES Final Result Performing Organization Address City/State/[facility] Co de Phone Number [facility] [address] [place] [phone] documented in this encounter Visit Diagnoses Diagnosis Dysphagia, pharyngoesophageal phase Heartburn Gastro-esophageal reflux disease without esophagitis Esophageal reflux Other constipation documented in this encounter Care Teams Customs Inspector Relationship Specialty Start Date End Date Safia Pedroza, JOSÉ MANUEL [address] [place] [address] PCP - General 01/13/22 documented as of this encounter
--- OUTSIDE RECORDS SUMMARY | 2024-08-09 15:03 | XMS_ITS | Clinical Summary ---
Author Organization [facility] Address [address] [place] [address] Care Team Providers Care Microphone Boom Operator Name Role Phone Safia Pedroza CLINICAL INFORMATICS STRATEGIST Primary Care Provider [phone] Social History Tobacco Use Types Packs/Day Years Used Date Smoking Tobacco: Never Assessed Comments Unknown Sex and Gender Information Value Date Recorded Sex Assigned at Not on file Legal Sex Female 18:27 EST Gender Identity Not on file Sexual Orientation Not on file Plan of Treatment Health Maintenance Due Date Last Done Comments Hepatitis C Screen 1960 Fall Risk Screening 2023 COVID-19 Vaccine (2023-25 season) 2024 RSV Immunization ( o r 60+ Years) (1 - 1-dose 75+ series) 2033 Insurance [facility] MEDICARE [facility] MEDICARE Care Teams Microphone Boom Operator Relationship Specialty Start Date End Date Safia Pedroza NP [address] [place] [phone] PCP - General 01/13/22
--- OUTSIDE RECORDS SUMMARY | 2024-08-09 15:03 | XMS_ITS | Encounter Summary ---
Author Organization [facility] Address [address] [place] [address] Care Team Providers Care Erector Operator Name Role Phone Safia Pedroza POSTPARTUM NURSE Primary Care Provider Encounter Details Date Type Department Care Team (Latest Contact Info) Description 06/13/2022 Lab Requisition [facility] Pathology & Laboratory Medicine - [facility] [address] [place] [address] Safia Pedroza, POSTPARTUM NURSE [address] [place] [phone] Encounter for gynecological examination (general) (routine) without abnormal findings Social History Tobacco Use Types Packs/Day Years [...] Name Priority Date/Time Associated Diagnosis Comments PAP TEST Today 06/12/2021 11:30 EDT Encounter for gynecological examination (general) (routine) without abnormal findings HPV DNA DETECTION WITH GENOTYPING, PCR Today 06/12/2021 11:30 EDT Encounter for gynecological examination (general) (routine) without abnormal findings documented in this encounter Results * HUMAN PAPILLOMAVIRUS (HPV) DETECTION-HIGH RISK TYPES (06/12/2021 11:30 EDT) HPV other High Risk types, PCR Negative Negative 06/17/2022 22:27 [facility] Comment:No E6 or E7 mRNA is detected from HPV types 16,18,31,33,35,39,45,51,52,56,58,59,66, and 68 by [employer] enterprise portal consultant mediated amplification. Papanicolaou smear specimen (specimen) CERVIX UTERI STRUCTURE / Unknown 06/12/2021 11:30 EDT 06/14/2022 13:21 EDT Safia Pedroza NP MICROBIOLOGY - GENERAL ORDERABLE S Final Result [facility] [address] [place] [address] * PAP TEST (06/12/2021 11:30 EDT) Specimens A. Cervix and/or Endocervix , ThinPrep Imaging System with Manual Evaluation 06/17/2022 22:27 [facility] Specimen Adequacy Satisfactory for Evaluation - transformation zone component absent Scant squamous epithelial component 06/17/2022 22:27 [facility] General Categorization Negative for intraepithelial lesion or malignancy 06/17/2022 22:27 [facility] Attestation . 06/17/2022 22:27 [facility] at 2227 Clinical History See below 06/17/20 22:27 [facility] HPV The result for the Human Papillomavirus (HPV) Detection-High Risk Types is Negative. No E6 or E7 mRNA is detected from HPV types 16,18,31,33,35,39 ,45,51,52,56,58,5 9,66, and 68 by [employer] enterprise portal consultant mediated amplification.Brittany ting was performed on specimen [id number] and was resulted on 06/17/20221940 EDT by [facility], LAB INSTRUMENT RESULTS IN 06/17/2022 22:27 [facility] Performing Lab [email or web address] 06/17/2022 22:27 [facility] Scanned Images 06/17/2022 22:27 EDT [facility] Papanicolaou smear specimen (specimen) CERVIX UTERI STRUCTURE / Unknown 06/12/2021 11:30 EDT 06/13/2022 11:37 EDT us Safia Pedroza NP PATHOLOGY ORDERABLES Final Resul t [facility] [address] [place] [address] documented in this encounter Visit Diagnoses Diagnosis Encounter for gynecological examination (general) (routine) without abnormal findings documented in this encounter Care Teams Erector Operator Relationship Specialty Start Date End Date Safia Pedroza, POSTPARTUM NURSE [address] [place] [address] PCP - General 01/13/22 documented as of this encounter
--- OUTSIDE RECORDS SUMMARY | 2024-08-09 15:03 | XMS_ITS | Continuity of Care Document ---
Author Organization [facility] Ambulatory Clinics Address [address] [place] [address] Care Team Providers Care Freezer Worker Name Role Phone MASON KENDRICK Primary Care Physician [phone] Encounter [facility] NBR [id number] Date(s): 06/21/22 - 06/21/22 [facility] Ambulatory [facility] [address], [place] [address] Encounter Diagnosis Osteoarthritis of left knee(Discharge Diagnosis) - 06/21/22 Hx of total knee arthroplasty(Discharge Diagnosis) - 06/21/22 Discharge Disposition: Home or Self Care Attending Physician: Kelsey Castellanos APRN, Referring Physician: MASON KENDRICK Allergies, Adverse Reactions, Alerts Substance Reaction Severity Status morphine Rash Vomiting Moderate Active Functional Status 06/21/22 Recent Travel History No recent travel Other exposure to Infectious Disease Non e Medications Adderall XR 10 mg oral capsule, [...] Range]: 1 Peripheral Pulse Rate [60-100 bpm] 71 bp m (06/21/22 12:06 PM) Blood Pressure [90-140/60-90 mmHg] 122/8 0mmHg (06/21/22 12:06 PM) Weight 98.88 kg (06/21/22 12:06 PM) Weight Measured (lbs) 217.993 lb (06/21/22 12:06 PM) Height 162.56 cm (06/21/22 12:06 PM) Height/Length Measured (inches) 64 inch (06/21/22 12:06 PM) BSA Measured 2.11 m2 (06/21/22 12:06 PM) Body Mass Index 37.42 kg/m2 (06/21/22 12:06 PM) Social History Social History Type Response Tobacco Never tobacco user T obacco Use:. Sex Hospital Discharge Instructions Follow Up Care 06/18/2022 13:28:44 With:Return to this practice Address: When: only if needed Patient Care team information Personnel Name: MASON KENDRICK Address: Address: [address] [place] [address]
--- OUTSIDE RECORDS SUMMARY | 2024-08-09 15:03 | XMS_ITS | Encounter Summary ---
Author Organization [facility] Address [address] [place] [address] Care Team Providers Care Bilingual Legal Assistant Name Role Phone Unavailable Primary Care Provider Unavailabl e Encounter Details Date Type Department Care Team (Late st Contact Info) Description 11/28/2004 Results Only [facility] - Maple conversion [address] [place] [address] Anitha Vale, TELEPHONE MECHANIC [facility] [address] [place], [place] [id number] Social History Tobacco Use Types Packs/Day Years [...] Priority Date/Time Associated Diagnosis Comments CYTOPATHOLOGY Routine 11/28/2004 0:00 EST documented in this encounter Results * CYTOPATHOLOGY (11/28/2004 0:00 EST) Pathology Report: CYTOPATHOLOGY REPORT Reports generated via electronic interface contain original data; however they are lacking the format of the original report. Caution should be taken when reading/interpreti ng unformatted reports. Name: ? ALTAGRACIA ZAMAN ? Accession #: ? [id number] : ? 1960 (Age: 44) ??F ?Collect Date: ? 11/28/2004 Location: ? [facility] ? Receive Date: ? 11/30/2004 Provider: ?ANITHA VALE TELEPHONE MECHANIC Copy to: ? Specimen/Source: ?ThinPrep Pap Test, Cervix/Endocervix Last Menstrual Period: ? 11/19/04 ? SPECIMEN ADEQUACY ? Satisfactory for Evaluation - transformation zone component present GENERAL CATEGORIZATION ? Other, see interpretation INTERPRETATION ? Endometrial cells present in a woman equal to or greater than age 40. Negative for Intraepithelial Lesion or Malignancy. EDUCATIONAL NOTES/RECOMMENDATI ONS ? Benign appearing endometrial cells on Pap tests are usually a normal finding in women with regular menstrual cycles, especially if the Pap test was collected during the first half of the menstrual cycle. There is data showing that endometrial cells on Pap tests may be associated with endometrial/uterin e abnormalities in post menopausal women or in perimenopausal women with abnormal bleeding. There is limited data on the significance of benign endometrial cells in post menopausal women on HRT. ??Clinical correlation is recommended. Note: ??The Pap test is not an accurate test for the screening of endometrial lesions and should not be used as a follow up in patients with clinical suspicion of endometrial pathology. ? Document reviewed and electronically signed by: ? LESVIA Calvillo(ASCP)(IAC) ? Report Date: ??12/05/2004 10:01 End of Report [facility] 11/28/2004 11/30/2004 us Anitha Vale NP PATHOLOGY ORDERABLES Final Resu lt Performing Organization Address City/State/[facility] Co de Phone Number TER[facility]ENDI[facility] [address] [place] [address] documented in this encounter Visit Diagnoses Not on filedocumented in this encounter
--- OUTSIDE RECORDS SUMMARY | 2024-08-09 15:03 | XMS_ITS | Encounter Summary ---
Author Organization [facility] Address [address] [place] [address] Care Team Providers Care Handbag Frames Inspector Name Role Phone Unavailable Primary Care Provider Unavailabl e Encounter Details Date Type Department Care Team (Late st Contact Info) Description 07/06/2008 Before PRISM Converted Visit (Maple) [facility] - Maple conversion [address] [place] [address] Anitha Vale, [facility] [address] [place], [place] [address] Social History Tobacco Use Types Packs/Day Years [...] Priority Date/Time Associated Diagnosis Comments CYTOPATHOLOGY Routine 07/06/2008 0:00 EDT documented in this encounter Results * CYTOPATHOLOGY (07/06/2008 0:00 EDT) Pathology Report: CYTOPATHOLOGY REPORT ? Reports generated via electronic interface contain original data; ? however they are lacking the format of the original report. ? Caution should be taken when reading/interpreti ng unformatted reports. ? Name: ? ALTAGRACIA ZAMAN ? Accession #: ? [id number] ? : ? 1960 (Age: 47) ??F ?Collect Date: ? 07/06/2008 ? Location: ? [facility] ? Receive Date: ? 07/08/2008 ? Provider: ?ANITHA VALE NP ? Copy to: ? Specimen/Source: ?Pap Test, Cervix/Endocervix, ThinPrep Imaging System ? with manual evaluation ? Last Menstrual Period: ? 10/9/08 ? SPECIMEN ADEQUACY ? Satisfactory for Evaluation ? - transformation zone component present ? - scant squamous epithelial component secondary to excessive mucus ? GENERAL CATEGORIZATION ? Negative for Intraepithelial Lesion or Malignancy ? Document reviewed and electronically signed by: ? Berenice Hydelogg, CT(ASCP) ? Report Date: ??07/13/2008 11:31 ? End of Report ? [facility] 07/06/2008 07/08/2008 us Anitha Vale NP PATHOLOGY ORDERABLES Final Resu lt Performing Organization Address City/State/[facility] Co de Phone Number [facility] [address] [place] [address] documented in this encounter Visit Diagnoses Not on filedocumented in this encounter
--- OUTSIDE RECORDS SUMMARY | 2024-08-09 15:03 | XMS_ITS | Encounter Summary ---
Author Organization [facility] Address [address] [place] [address] Care Team Providers Care Closing Manager Name Role Phone Safia Pedroza TECHNICAL LABORATORY ASST Primary Care Provider [phone] Encounter Details Date Type Department Care Team (Late st Contact Info) Description 03/12/2022 Lab Requisition [facility] Pathology & Laboratory Medicine - [address] [address] Outr Resulting Lab, Provider Social History Tobacco Use Types Packs/Day Years [...] Procedure Name Priority Date/Time Associated Diagnosis Comments LYME AB Routine 03/12/2022 11:20 EDT documented in this encounter Results * LYME AB (03/12/2022 11:20 EDT) Lyme Ab Negative Negative 03/13/2022 11:09 EDT [facility] Blood VENOUS BLOOD / Unknown 03/12/2022 11:20 EDT 03/12/2022 22:23 EDT us Provider Outr Resulting Lab IMMUNOLOGY AND SEROL OGY ORDERABLES Final Result [facility] [address] [place] [address] documented in this encounter Visit Diagnoses Not on filedocumented in this encounter Care Teams Closing Manager Relationship Specialty Start Date End Date Safia Pedroza, TECHNICAL LABORATORY ASST [address] [place] [address] PCP - General 01/13/22 documented as of this encounter
--- OUTSIDE RECORDS SUMMARY | 2024-08-09 15:03 | XMS_ITS | Encounter Summary ---
Author Organization [facility] Address [address] [place] [address] Care Team Providers Care Proc Tech Name Role Phone Unavailable Primary Care Provider Unavailabl e Encounter Details Date Type Department Care Team (Late st Contact Info) Description 04/08/[address] [facility] - Map conversion [address] [place] [address] Anitha Vale, REPAIR ARMATURE WINDER [employer] [facility] [address] [place], [place] [phone] Social History Tobacco Use Types Packs/Day Years [...] Priority Date/Time Associated Diagnosis Comments CYTOPATHOLOGY Routine 04/08/2007 0:00 EDT documented in this encounter Results * CYTOPATHOLOGY (04/08/2007 0:00 EDT) Pathology Report: CYTOPATHOLOGY REPORT Reports generated via electronic interface contain original data; however they are lacking the format of the original report. Caution should be taken when reading/interpreti ng unformatted reports. Name: ? ALTAGRACIA ZAMAN ? Accession #: ? [id number] : ? 1960 (Age: 46) ??F ?Collect Date: ? 04/08/2007 Location: ? [facility] ? Receive Date: ? 04/10/2007 Provider: ?ANITHA VALE REPAIR ARMATURE WINDER HELPER Copy to: ? Specimen/Source: ?ThinPrep Pap Test, Cervix/Endocervix, processed on [email or web address] ThinPrep Imaging System, with manual evaluation Last Menstrual Period: ? 02/19/07 ? SPECIMEN ADEQUACY ? Satisfactory for Evaluation - transformation zone component present GENERAL CATEGORIZATION ? Negative for Intraepithelial Lesion or Malignancy ? Document reviewed and electronically signed by: ? LESVIA Hussein(ASCP) ? Report Date: ??04/15/2007 15:50 End of Report [facility] 04/08/2007 04/10/2007 us Anitha Vale REPAIR ARMATURE WINDER HELPER PATHOLOGY ORDERABLES Final Resu lt [facility] [address] [place] [address] documented in this encounter Visit Diagnoses Not on filedocumented in this encounter
--- OUTSIDE RECORDS SUMMARY | 2024-08-09 15:04 | XMS_ITS | Encounter Summary ---
Author Organization [facility] [place] [address] [place] [address] Care Team Providers Care Benefits Manager Name Role Phone Anitha Perry APRN Primary Care Provider [phone] Reason for Visit * Reason Comments Urinary Incontinence Encounter Details Date Type Department Care Team (Late st Contact Info) Description 09/25/2011 1:00 PM EST Procedure [place] [id number] Brandy Brooks MD [facility] [address] Urinary incontinence (Primary Dx); Intrinsic sphincter deficiency (ISD) Discharge Disposition: Home Social History Tobacco Use Types Packs/Day Years Used Date Smoking Tobacco: Never Smokeless Tobacco: Never Alcohol Use Standard Drinks/Week Comments Not Asked 0 (1 standard drink = 0.6 oz pur e alcohol) Sex and Gender Information Value Date Recorded Sex Assigned at Not on file Gender Identity Not on file Sexual Orientation Not on file documented as of this encounter Last Filed Vital Signs Vital Sign Reading Time Taken Comments Blood Pressure 133/68 09/25/2011 12:12 PM EST Pulse 87 09/25/2011 12:12 PM EST Temperature - - Respiratory Rate - - Oxygen Saturation - - Inhaled Oxygen Concentration - - Weight 81.6 kg (180 lb) 09/25/2011 12:12 PM EST Height 165.1 cm (5' 5) 09/25/2011 12:12 PM EST Body Mass Index 29.95 09/25/2011 12:12 PM EST documented in this encounter Patient Instructions * Patient Instructions* Michelle Deshpande LPN - 09/25/2011 12:33 PM EST Instructions following Cystoscopy Activity: As tolerated by your comfort level. Fluids: You should increase your water today. Avoid coffee, tea and cola. You do not need to remmpg39 ounces of water today. Urination: You will likely have a small amount of blood in your urine for the next several days. This is normal; however, if you are passing large amounts of blood clots or are unable to void please call our office at [phone] before 5PM or [phone] after hours. Please call if: * you have copious blood in your urine * fevers greater than 101.3 F * you are unable to void The number for questions is [phone] before 5 PM weekdays and [phone] after 5 PM and weekends. Follow-up: 8 weeks if not leaking call and cancel. documented in this encounter Progress Notes * Brandy Brooks MD - 09/25/2011 10:49 PM EST Coapatite injection: This is the patient's 4th injection. She had collagen in December and again on 03/12. She was better for a day after the last injection. She had coapatite on 05/24/11 and her continence improved for about 4 weeks. Indications: This patient has been incontinent since 1986. Previous urodynamics on 12/05/10 confirmed intrinsic sphincter dysfunction. Filling bladder pressures were stable. The patient had a skin test on 12/05/10 and this was negative. We are switching to coapatite as collagen isn't available. Previous injections were performed on 01/08/11, 03/12/11 and 05/24/11 and 07/24/11. The first 2 procedures were collagen, the 2nd 2 coapatite. She has had some improvement with each injection. Vitals: see cysto sheet U/A: neg See procedure note Imp: intrinsic sphincter dysfunction Plan: return to clinic in 8 weeks. Cancel if doing better. documented in this encounter Procedure Notes * Brandy Brooks MD - 09/25/2011 10:50 PM ESTAssociated Order(s): CYSTOSCOPY Pre-Procedure Diagnose(s): Urinary incontinence Post-Procedure Diagnose(s): Urinary incontinence The patient was placed in the lithotomy position and prepped and draped in the usual fashion. Lidocaine gel was instilled into the urethra. Using an injection scope cystoscopy was performed. The cysto was normal. Next 1 cc of 1% lidocaine was injected at the level of the bladder neck. Coapatite wasinjected to close the bladder neck. A total of 2 Syringe(s) was/were used. The bladder neck was coapted at the close of the procedure. The scope was then removed. The patient tolerated the procedure well. The patient was able to void. The PVR was checked and was nil. The patient was given 1 cipro pre op. A return appointment was made for 8 weeks. The patient has been told to call if there are problems prior to that. 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
--- OUTSIDE RECORDS SUMMARY | 2024-08-09 15:04 | XMS_ITS | Encounter Summary ---
Author Organization [facility] [place] [address] [address] Care Team Providers Care Landscape Specialist Name Role Phone Anitha Perry APRN Primary Care Provider [phone] Reason for Visit * Reason Comments Urinary Incontinence Encounter Details Date Type Department Care Team (Late st Contact Info) Description 05/24/2011 10:00 AM EDT Procedure visit Urology at [facility] [place] [address] Brandy Brooks MD [facility] [place] [place] [address] Incontinence (Primary Dx); Urinary incontinence; Intrinsic sphincter deficiency (ISD) Discharge Disposition: Home [...] Sign Reading Time Taken Comments Blood Pressure 145/76 05/24/2011 10:24 AM EDT Pulse 77 05/24/2011 10:24 AM EDT Temperature - - Respiratory Rate - - Oxygen Saturation - - Inhaled Oxygen Concentration - - Weight 87.5 kg (193 lb) 05/24/2011 10:07 AM EDT Height 165.1 cm (5' 5) 05/24/2011 10:07 AM EDT Body Mass Index 32.12 05/24/2011 10:07 AM EDT documented in this encounter Patient Instructions * Patient Instructions* Maritza Franco LPN - 05/24/2011 10:24 AM EDT Return in 8 weeks if still leaking. If not call when needed. documented in this encounter Progress Notes * Brandy Brooks MD - 05/24/2011 10:44 AM EDT Coapatite injection: This is the patient's 3 njection. She had collagen in December and again on 03/12. She was better for aday after the last injection. Indications: This patient has been incontinent since 1986. Previous urodynamics on 12/05/10 confirmed intrinsic sphincter dysfunction. Filling bladder pressures were stable. The patient had a skin test on 12/05/10 and this was negative. We are switching to coapatite as collagen isn't available. Previous injections were performed on 01/08/11 and 03/12/11. Vitals: see cysto sheet U/A: neg See procedure note Imp: intrinsic sphincter dysfunction Plan: return to clinic in 8 weeks. documented in this encounter Procedure Notes * Brandy Brooks MD - 05/24/2011 10:46 AM EDTAssociated Order(s): CYSTOSCOPY Pre-Procedure Diagnose(s): Incontinence Post-Procedure Diagnose(s): Intrinsic sphincter deficiency (ISD) Procedure: The patient was placed in the lithotomy position and prepped and draped in the usual fashion. Lidocaine gel was instilled into the urethra. Using the ACMI s injection scope cystoscopy was performed. Full details of the cystoscopy are on the cysto sheet in the chart. Next 1 cc of 1% lidocaine was injected at the level of the bladder neck. Coapatite was injected to close the bladder neck. A total of 2 syringes were used. The bladder neck was coapted at the close of the procedure. The scope was then removed. The patient tolerated the procedure well. The patient was able to void. The PVR was checked and was Minimal The patient was given 1 cipro preop. A return appointment was made for 8 weeks. The patient has been told to call if there are problems prior to that. documented in this encounter Plan of Treatment Not on file documented as of this encounter Results * Cystoscopy (05/24/2011 10:48 AM EDT) Brandy Brooks MD PROCEDURE OR DERABLES documented in this encounter Visit Diagnoses Diagnosis Incontinence- Primary Unspecified urinary incontinence Urinary incontinence Unspecified urinary incontinence Intrinsic sphincter deficiency (ISD) Intrinsic (urethral) sphincter deficiency (ISD) documented in this encounter Care Teams Landscape Specialist Relationship Specialty Start Date End Date Anitha Perry APRN PCP - General 08/07/10 02/25/19 documented as of this encounter
--- OUTSIDE RECORDS SUMMARY | 2024-08-09 15:04 | XMS_ITS | Encounter Summary ---
Author Organization [facility] Address [facility] [place] [address] Care Team Providers Care Mems Device Scientist Name Role Phone Safia Pedroza APRN Primary Care Provider [phone] Reason for Visit * Reason Onset Date Comments Pre Procedure Call 12/14/2020 Encounter Details Date Type Department Care Team (Late st Contact Info) Description 12/14/2020 Telephone Dermatology at [facility] [address] [place] [id number] Nella Reddy CMA Pre Procedure Call Social History Tobacco Use Types Packs/Day Years Used Date Smoking Tobacco: Never Smokeless Tobacco: Never Alcohol Use Standard Drinks/Week Comments Not Asked 0 (1 standard drink = 0.6 oz pur e alcohol) Sex and Gender Information Value Date Recorded Sex Assigned at Not on file Gender Identity Not on file Sexual Orientation Not on file documented as of this encounter Miscellaneous Notes * Telephone Encounter - Nella Reddy CMA - 12/14/2020 9:14 AM EDT Mohs consultation and preoperative note (H&P) Patient Name: Cortney Smallwood Age: 60 y.o. Date of : 1960 Today's Date: 12/14/2020 REFERRING PROVIDER: No ref. provider found CC: Mohs micrographic surgery for treatment of a cutaneous tumor HPI: Cortney Smallwood is a 60 y.o. female presenting for biopsy-proven basal cell carcinoma, nodular location on the left lateral canthus. The dermatologic preoperative information sheet was reviewed with pertinent positive and negative as below. DERMATOLOGIC PRE-OPERATIVE EVALUATION AND REVIEW OF SYSTEMS History of Mohs surgery? no If yes, have you ever had Mohs surgery with Dr. Brady? no Pacemaker/Defibrillator? no Joint replacement or other implantable devices (e.g. Cochlear implant)? If yes then when? yes R- knee (4 yrs ago) Do you take a blood thinner? Yes Aspirin History of organ transplant? no History of artificial valve or stroke? no History of liver disease or bleeding disorder? no Do you have any medical problems that may affect your upcoming surgery? no Do you have any concerns regarding your upcoming surgery? no We ask patients to discontinue Fish oil/Multivitamin/Vit E/?? supplements and natural medicines not prescribed by a physician 1 week prior to surgery. SOCIAL HISTORY: Makes Own Decisions Yes Hearing aid or other devices: No Relevant travel history or future plans: no Tobacco use (amount per day, type of tobacco): no Do you have any physical limitations that may affect your surgery?: no ALLERGIES: Allergies reviewed MEDICATIONS: Medications reviewed documented in this encounter Plan of Treatment Not on file documented as of this encounter Visit Diagnoses Not on filedocumented in this encounter Care Teams Mems Device Scientist Relationship Specialty Start Date End Date Safia Pedroza APRN PCP - General Family Medicine 09/24/19 documented as of this encounter
--- OUTSIDE RECORDS SUMMARY | 2024-08-09 15:04 | XMS_ITS | Encounter Summary ---
[place] [address] Care Team Providers Care Ekg/Ecg Technician Name Role Phone Safia Pedroza APRN Primary Care Provider [phone] Encounter Details Date Type Department Care Team (Latest Contact Info) Description 07/19/2022 Travel Social History Tobacco Use Types Packs/Day Years [...] on filedocumented in this encounter Care Teams Ekg/Ecg Technician Relationship Specialty Start Date End Date Safia Pedroza APRN PCP - General Family Medicine 09/24/19 documented as of this encounter
--- OUTSIDE RECORDS SUMMARY | 2024-08-09 15:04 | XMS_ITS | Encounter Summary ---
Author Organization [facility] Address [facility] [place] [address] Care Team Providers Care Human Services Program Specialist Name Role Phone Safia Pedroza APRN Primary Care Provider [phone] Reason for Visit * Reason Comments Basal Cell Carcinoma Encounter Details Date Type Department Care Team (Latest Contact Info) Description 12/21/2020 10:15 AM EDT Clinical Support Dermatology at [facility] [address] [place] [address] Alexis Schilling MD [facility] [address] [place] [address] Basal cell carcinoma (BCC) of lateral canthus of left eye Social History Tobacco Use Types Packs/Day Years Used Date Smoking Tobacco: Never Smokeless Tobacco: Never Alcohol Use Standard Drinks/Week Comments Not Asked 0 (1 standard drink = 0.6 oz pur e alcohol) Sex and Gender Information Value Date Recorded Sex Assigned at Not on file Gender Identity Not on file Sexual Orientation Not on file documented as of this encounter Progress Notes * Nella Reddy CMA - 12/21/2020 10:15 AM EDT Mohs consultation and preoperative note (H&P) Patient Name: Cortney Smallwood Age: 60 y.o. Date of : 1960 Today's Date: 12/21/2020 REFERRING PROVIDER: None CC: Mohs micrographic surgery for treatment of [...] you ever had Mohs surgery with Dr. Schilling? no Pacemaker/Defibrillator? no Joint replacement or other [...] documented as of this encounter Visit Diagnoses Diagnosis Basal cell carcinoma (BCC) of lateral canthus of left eye documented in this encounter Care Teams Human Services Program Specialist Relationship Specialty Start Date End Date Safia Pedroza APRN PCP - General Family Medicine 09/24/19 documented as of this encounter
--- OUTSIDE RECORDS SUMMARY | 2024-08-09 15:04 | XMS_ITS | Encounter Summary ---
[facility] [place] [address] Care Team Providers Care Engineering Administrator Name Role Phone Safia Pedroza APRN Primary Care Provider [phone] Encounter Details Date Type Department Care Team (Latest Contact Info) Description 01/01/2021 2:45 PM EDT Clinical Support Dermatology at [facility] [address] [place] [address] Alexis Schilling MD [facility] [address] [address] Visit for suture removal Social History Tobacco Use Types Packs/Day Years Used Date Smoking Tobacco: Never Smokeless Tobacco: Never Alcohol Use Standard Drinks/Week Comments Not Asked 0 (1 standard drink = 0.6 oz pur e alcohol) Sex and Gender Information Value Date Recorded Sex Assigned at Not on file Gender Identity Not on file Sexual Orientation Not on file documented as of this encounter Progress Notes * Lyssa Bledsoe CMA - 01/01/2021 2:45 PM EDT Images from the original note were not included. Patient: Cortney Smallwood Date of . 1960 Today's Date: 01/01/2021 Cortney Smallwood is a 60 y.o. female here for suture removal, 10 days post op. Photograph: Plan: 1. Sutures removed today. 2. Follow up with referring provider or zipper cutter for skin exams. 3. Follow up with Dr. Schilling as needed. documented in this encounter Plan of Treatment Not on file documented as of this encounter Visit Diagnoses Diagnosis Visit for suture removal Encounter for removal of sutures documented in this encounter Care Teams Engineering Administrator Relationship Specialty Start Date End Date Safia Pedroza, BALTA PCP - General Family Medicine 09/24/19 documented as of this encounter
--- OUTSIDE RECORDS SUMMARY | 2024-08-09 15:04 | XMS_ITS | Encounter Summary ---
[place] [address] Care Team Providers Care Chemical Laboratory Technician Name Role Phone Anitha Perry APRN Primary Care Provider [phone] Encounter Details Date Type Department Care Team (Late st Contact Info) Description 12/05/2010 11:00 AM EDT [place] [id number] Social History Tobacco Use Types Packs/Day Years Used Date Smoking Tobacco: Never Assessed Sex and Gender Information Value Date Recorded Sex Assigned at Not on file Gender Identity Not on file Sexual Orientation Not on file documented as of this encounter Plan of Treatment Not on file documented as of this encounter Visit Diagnoses Not on filedocumented in this encounter Care Teams Chemical Laboratory Technician Relationship Specialty Start Date End Date Anitha Perry APRN PCP - General 08/07/10 02/25/19 documented as of this encounter
--- OUTSIDE RECORDS SUMMARY | 2024-08-09 15:04 | XMS_ITS | Encounter Summary ---
Author Organization [facility] Address [facility] [place] [address] Care Team Providers Care Consultant Dietitian Name Role Phone Safia Pedroza APRN Primary Care Provider [phone] Reason for Visit * Reason Comments Basal Cell Carcinoma * Consultation (Routine) - Closed Specialty Diagnoses / Procedures Referred By Contkriss t Referred To Contact Dermatology Diagnoses Basal cell carcinoma (BCC), unspecified site Melody Kimball MD [address] [place] [id number] Alexis Schilling MD [facility] [address] [place] [address] Referral ID Status Reason Start Date Expiration Date V isits Requested Visits Authorized [id number] Closed Consult, Test & Treat 10/31/2020 10/31/2021 1 1 Encounter Details Date Type Department Care Team (Latest Contact Info) Description 12/21/2020 10:30 AM EDT Procedure visit Dermatology at [facility] [address] [place] [address] Alexis Schilling MD [facility] [address] [place] [address] Basal cell carcinoma (BCC) of lateral canthus of left eye; Prophylactic antibiotic Social History Tobacco Use Types Packs/Day Years [...] Sign Reading Time Taken Comments Blood Pressure 143/75 12/21/2020 11:54 AM EDT Pulse 80 12/21/2020 11:54 AM EDT Temperature - - Respiratory Rate - - Oxygen Saturation - - Inhaled Oxygen Concentration - - Weight - - Height - - Body Mass Index - - documented in this encounter Patient Instructions * Patient Instructions* RobertNella membreno I, [facility] - 12/21/2020 10:30 AM EDT Your staff Mohs surgeon today was Alexis Schilling MD, PhD. FLAP CLOSURE Your wound(s) was repaired by a flap closure. A flap closure is rearrangement of skin tissue. A flap is performed when the area has too much tension, or when a simple side to side closure cannot be performed, or when a flap would lead to better cosmetic outcome with a flap. Your flap may be closed with all absorbable sutures, sutures that need to be removed or a combination of both. You will be instructed upon discharge if a suture removal appointment is necessary. Caring for a flap is very similar to caring for regular side to side stitches, except more caution should be used when cleaning the incisions as some flaps can be delicate. Instructions for wound care are below. Please keep in mind these are general guidelines. When in doubt, or if you have more specific questions, please call us. Keep below as a reference while caring for your wound(s): Wound Care ??? Gently remove your initial bandage (after 72 hours from surgery). It is normal to have swellingand bruising. ??? Begin wound care as below. ??? If your initial bandage only stayed on for 24 hours (for example, falls off sooner), this is okay. Resume your wound care and bandaging instructions as below. ??? Change your bandage once a day (and whenever it becomes wet or soaks through) continue until return for suture removal. ??? For bandage changes: o Wash hands with soap and water, or use gloves that you can purchase at a local pharmacy or drug store. o Clean the surgical area with cotton-tipped swabs or soft gauze dipped in soapy water (recommend liquid soap in clean room temperature water). Roll the cotton swab over the incision with soapy water, then with plain water, and then gently pat dry. Do not scrub the area with a washcloth. Do not putdirect shower water pressure onto your wound. Do not pick off any scabs. It is okay to allow soapy w ater to run over your wound in the shower, however. o If you cannot remove any bloody or crusted areas, you may soak the area with wet gauze first for 15 to 20 minutes to help soften it o Pat the area dry with clean gauze or cotton swabs. Do not rub. o Use a cotton swab to apply a generous layer of petrolatum over the incision lines and any open-wound areas. o Make sure your tube or jar of petrolatum is new or unused to prevent prior contamination from entering your wound. Avoid double dipping. o After applying petrolatum, use a clean nonstick gauze or other nonstick dressing, such as Telfa. This may be purchased over the counter at a drug store. Do not use regular gauze as it will stick toyour wound and can peel off healing skin with bandage changes. o Secure the bandage with paper tape or a bandage. Band-aids are okay, but typically have more adhesive that can irritate the skin compared to paper tape. This can be purchased at a drug store. o Continue this wound care daily until return for suture removal. If any areas of the flap were left open to heal, continue to apply Vaseline until healed. o Keep in mind that if you do not want to use a bandage at all due to difficulty, irritation of skin, cost, or inconvenience --- you can certainly avoid bandages altogether. However, it is imperativethat you continue with topical petrolatum (plain, fragrance-free). This may need to be applied several times daily if it gets wiped off, washed off, or dries out. Things to purchase for wound care: -Nonstick gauze -A tube or tub of petrolatum jelly (fragrance-free, no dye, not lotion) -paper tape -cotton swabs -gloves (optional) -Dial or other antibacterial liquid soap After Surgery 1. Avoid tobacco, smoking/vapors, and cannabis (marijuana) for at least 3 weeks after your surgery.Smoking impairs healing and leads to worse scarring. Even cutting back on tobacco is helpful if youcannot abstain completely. 2. Limit alcohol intake to one drink per day over the next 3 days. 3. Do not participate in athletic activities for 5-7 days. Athletic activity is a relative term, but this is considered to be anything that could potentially raise your heartrate or blood pressure. Elevating your heart rate and blood pressure can increase risks of swelling, bleeding, wound opening,or lead to worse scarring. Walking at a leisurely pace is fine for most people, but not if you are going walking for the purpose of exercise. 4. Do not lift anything heavier than 10 pounds until your sutures are removed. 5. Some antique jewelry repairer may need to be delayed or delegated such as vacuuming, mowing the lawn, snow shoveling, or caring for young children that need to be carried/lifted. Working any major muscle groups increases your heart rate and can increasing bleeding. 6. Avoid swimming, hot tubs, and direct water pressure for 3 weeks after surgery. You may shower once your initial bandage comes off in 48 hours, however. 7. Avoid antibiotic ointments such as triple antibiotic creams. Stick with your wound care instructions, please. 8. Whenever possible, it is helpful to take photographs with your camera or cell phone of any problems or concerns you see with your wound. We often ask for photos when you call with questions. 9. Starting 2 months following surgery, you can begin firm massage to any areas of firm scar along your incision to soften the scar and reduce bumpiness. Do this 3 times per day, 3 minutes each time.Do not start massage before 2 months. 10. Your wound will appear completely healed soon after sutures are removed (about 1 week), but incisions can remain bright red for several weeks. Then the scarring and healing process continues under the skin for 6 months up to 2 years. The scar may become less red, less firm, and more subtle during this time but the rate of improvement varies depending on the person. Most redness, discoloration, bumpiness resolves by 6 months. 11. Keep your follow-up appointments and make sure to continue to have your skin checked, as often as is recommended by your flight director, for new skin cancers. This is once per year for most patients. 12. Your can expect your scar to be red for several weeks with gradual fading of the redness. The scar will also be raised and lumpy until the dissolvable sutures under the skin get absorbed by your body which can take 3-4 months. The scar will flatten eventually. 13. Occasionally, about 20% of the time, on the face, the stitches under the skin can spit out ofthe incision to the surface. It can start out looking like a pimple or blemish directly on your incision. Sometimes it can look like a small mini infection so please let us know before you go to another provider for antibiotics. This means that the suture may need to be trimmed or removed when you return for your wound check. This typically occurs a few weeks after surgery if it does occur. 14. To optimize your scar, and best cosmetic result, please avoid direct sunlight to your incision for the first 6 months following surgery. UV ray exposure to your incision may cause the redness to last longer, or to cause permanent darkening of your scar. You can avoid sun by covering your incision with a bandage when outdoors, or wearing SPF 30 to 50 sunscreen (broad spectrum). 15. Sometimes after your sutures are removed, your incision may still be healing for 1 more week. Because of this, avoid make-up and sunscreen until approximately 2 weeks after surgery, or sooner if your skin edges look completely sealed. 16. Flaps may sometimes thicken or become firm several weeks after surgery. This is expected in some types of flaps and in certain locations on the face. This is called hypertrophy. If this occurs, at your wound check, you may need small amounts of medicine injected into your flap to help it softenor thin. This will be determined at your follow-up visit. 17. Flaps and skin surgery in general can lead to mild sensation loss (numbness) in the area of surgery. Massage starting at 8 weeks after surgery can help. 18. Bruising. It is very common to have bruising in swelling in any area of the face, even in areasthat are distant from where we did surgery. This is especially common 24 to 48 hours after surgery when fluid and swelling shifts around in the face. For example, surgery on the forehead, temples, orcheeks often leads to eyelid swelling of both eyes, black eyes, or dark purple bruising. This is expected in most patients and will gradually resolve. However, if you have severe pain not resolvingwith over the counter medicine, please call us. You can use ice packs or a bag of frozen peas for 15-20 minutes 3-4 times daily to areas of swelling on the face; use caution not to put the icy item di rectly on your incision, directly onto your skin as this can damage skin, and avoid prolonged use more than 20 minutes. [address] best way to use ice packs is over the bandage, or a light cloth/paper towelbetween the ice pack and your skin. You can ice for as many days as needed until swelling has resolved. Antibiotics: If you were given antibiotic prescription, it is important to start them the evening of your surgery date. Most patients do not need antibiotics after surgery. For pain: Most patients of different ages do not require pain medications. If you do feel soreness or pain, start by taking over the counter extra strength acetaminophen (up to 3000 mg in a 24 hour period). Generally, we like you to avoid NSAIDS (non-steroid anti-inflammatory drugs such as ibuprofen) for thefirst 48 hours after surgery as this can increase risk of bleeding. However, if acetaminophen is not helping with pain, you can alternate acetaminophen with iburpofen (ibuprofen 400 mg every 4 hours.) Ice packs over your bandage without getting your bandage wet can also help with pain and swelling,for up to 20 minutes at a time (20 minutes off between icing sessions). Frozen peas work well as ice packs. THIS IS AN EXAMPLE OF A PAIN TREATMENT SCHEDULE: 1) You can take 500 mg acetaminophen one tablet by mouth at 6:00pm. This is over the counter. 2) You can take 400 mg of ibuprofen two hours later, at 8:00 pm, or other NSAID such as naproxen, as long as it does not interact with your other medications and your other doctors have not told you to avoid this. This is over the counter. Check to see how many milligrams (mg) each of your ibuprofen tablets are. Most of the time, ibuprofen comes in 200 mg tablets, so 400 mg would mean taking two of these tablets or capsules. 3) You can take 500 mg of acetaminophen at 10:00 pm. Keep track of your total acetaminophen in a 24hour period as your maximum should be 3000 mg total in a 24 hour period of this medication. 4) At midnight, you can take another 400 mg of ibuprofen. 5) you can continue on this schedule over the next 2 days, making sure to keep tabs of your total acetaminophen. If you are still in pain after trying the above, please call us. When to call your surgeon: ??? Fever of 100.4 degrees Fahrenheit or higher ??? Bleeding not controlled with direct firm pressure to your wound. Bleeding is most common in thefirst 48 hours. ??? Pain that is worsening and not relieved by over the counter medications such as acetaminophen (up to 3000 mg in a 24 hour period) ??? Wound reopening after stitching ??? Pus or bad odor from your wound ??? Worsening redness and warmth around your wound ??? If you think your surgery site is infected, please call us before seeking care or antibiotics from other providers ??? Please call us before seeking care in an emergency room or primary care. ??? If you do call, please leave your full name, phone number, date of , date of surgery, and medical record number if you have it. If after hours, please call the timber treatment plant operator or [phone] and ask for the flight director on-call. If you have any non-urgent questions or concerns, please feel free to call my office or contact me through our patient portal, [email or web address], at [email or web address] How to contact us during business hours Dermatology at [facility] [address]: Mohs scheduling or Mohs follow-up appointments: [phone] documented in this encounter Progress Notes * Alexis Schilling MD - 12/21/2020 10:30 AM EDT Images from the original note were not included. Summary of Procedure(s): Site: left lateral canthus Tumor Type: Basal Cell Carcinoma, nodular Stages to clear tumor: 2 Repair: [place] transposition flap, small area of second intent Images: The patient was asked to call with any issues and is aware that I am available 24/7 should questions arise. Please note that I have reviewed the preoperative checklist from today's nursing visit including relevant social history and medications. I have reviewed the preoperative photos if available and the biopsy report. VITAL SIGNS: BP 143/75 (BP Location (NBP): Left arm, Patient Position: Sitting, BP Cuff Sizes: Adult (25-34 cm)) Pulse 80 PHYSICAL EXAMINATION: General: patient is awake, alert, oriented and in no acute distress. Skin: Focused examination of surgical site(s) performed which shows a well healed biopsy site with surrounding poorly defined pearly plaque. PHYSICIAN REVIEW OF REPORTS, RECORDS, IMAGES: 1) The accompanying pathology report(s) associated with aforementioned biopsy slide(s) were/was also reviewed. Assessment: Cortney Smallwood is a 60 y.o. female presenting for: 1. Biopsy-proven basal cell carcinoma, nodular located on the left lateral canthus. Plan: 1. Findings from the biopsy report, today's clinical exam, and other pertinent details were reviewed with patient today. All questions were answered. 2. Discussed treatment options based on the above findings. We recommended Mohs micrographic surgery for treatment of this tumor. Mohs micrographic surgery was indicated due to patient, site and/or tumor characteristics (see operative report for specific indication). 3. We discussed risks, benefits, and alternative treatment options to the Mohs micrographic surgeryprocedure and pertinent information including but not limited to the following: ?? Risks include bleeding, infection, scar, recurrence, incomplete tumor removal or inability to cure with surgery alone if the tumor features are more aggressive than the initial pathology indicates. Occasionally, additional adjuvant treatments may be recommended. Additional risks include large wound, prolonged wound and healing, pain, swelling, bruising, increased appearance of vessels or worsening erythema of baseline skin; more rarely risks include damage to underlying structures such as nerves, cartilage, or muscle which could lead to temporary or permanent loss of sensation or motor function. ?? Benefit is precise tumor removal ?? If reconstruction is performed, it is specific to the patient and defect. ?? Discussed that the shape, size, depth of the wound is often not known until the tumor is clearedand thus the reconstruction options are sometimes not known until after tumor clearance. Occasionally, referrals to other providers may be recommended for reconstruction based on patient preference and need. ?? Reviewed the pros and cons of common reconstructions used for this tumor type, size, and location, and that reconstruction may lead to change in appearance. ?? Natural history of scar was discussed, including that the scar will continue to mature for 1-2 years. Recommended avoidance of special ointments or scar creams, and avoidance of direct sun exposure to the scar for optimal recovery. ?? Reviewed that there are some aspects of cosmesis that are dependent on patient's characteristicssuch as age, skin laxity/texture factors, inflammatory skin diseases such as rosacea, prior surgery/radiation, degree of actinic damage, smoking status, strength of the patient's immune system, diligent wound care, medications, and genetics. ?? Having Mohs surgery may lead to physical limitations for optimal healing, such as restricted physical activity and heavy lifting. 4. The nature of sun-induced photo-aging and skin cancers was discussed. Recommended sun avoidance when possible, especially peak hours of sun 10 am to 2pm, protective clothing such as wide-brimmed hats and long-sleeved clothing, and the use of SPF broad-spectrum sunscreen SPF 50 or higher. 5. Signs and symptoms of skin cancer reviewed. Patient to report any new, changing, or symptomatic lesions and follow up with his or her flight director or other skin provider. 6. Discussed avoiding direct sun exposure to scars for best cosmetic result. Note initiated by HARPREET Sidhu CMA has performed the documentation for this encounter in the presence of and acting as a scribe for Dr. Caitlyn Pringle performed the above scribed service and agree with the accuracy of the documentation in this encounter. Reviewed and signed by: Alexis Schilling Dermatology [facility] * Alexis Schilling MD - 12/21/2020 10:30 AM EDT Mohs micrographic Surgery Operative Report Patient name: Cortney Smallwood : 1960 Date: 12/21/2020 Staff Surgeon: Alexis Schilling MD PhD Nursing/Machinist Automotive(s): Kira Ruggiero RN, Carlie Alvarez [employer]ICAL GLASS SILVERER, Nella Reddy [facility], Ambrocio Ward [facility], Joanna Corrales [facility] Station Master (s): Alba Campos Pre-operative diagnosis: Basal Cell Carcinoma, nodular Post-operative diagnosis: Basal Cell Carcinoma nodular Location/Site: left lateral canthus Procedure: Mohs micrographic surgery Indication(s) for Mohs micrographic surgery: Anatomic location for tissue conservation Stages: 2 Preoperative size of tumor: 1.4 x 1.0 cm Stage I The nature and purpose of the procedure, associated risks, possible consequences and complications,and alternative forms of treatment were explained in detail. We reviewed the possible repairs basedon the clinical appearance of tumor but discussed that often the repair options may not be known until the tumor has hugh extirpated. Informed consent and permission to take photographs were obtained. The site was confirmed with the patient/authorized aircraft sales representative/referring physician and/or a photograph form time of biopsy. A pre-operative time-out (procedural pause) was conducted with no unresolved discrepancies noted. Local anesthesia was obtained with 1% lidocaine with 1:100,000 epinephrine. The surgical site was prepped and draped in the usual sterile manner. With all visible gross tumor completely excised, the borders of the tumor and 2- 3 mm margins were excised as a complete layer. Hemostasis was achieved by electrocoagulation. The excised tissue was oriented and divided into 2 sections, chromacoded, and submitted for frozen sections. The patient tolerated the procedure well and without complications. On microscopic evaluation of the frozen sections, residual tumor was identified as basal cell carcinoma on section A2 (see section number on map). Stage II The surgical site was re-anesthetized with 1% lidocaine with 1:100,000 epinephrine, re-prepped and redraped in a sterile manner. The residual tumor was re-excised as a complete layer 2-3mm in thickness using the Mohs map to delineate area of residual tumor. Hemostasis was achieved with electrocoagul ation. The tissue was oriented and divided into 1 sections, chromacoded, and submitted for frozen sections. The patient tolerated the procedure well and without complications. On microscopic evaluation of the frozen sections, no residual tumor was identified on the deep or outer border of the sections. Depth of excision muscle Final defect size: 2.0 x 1.7 cm Repair Report (Flap) Patient name: Cortney Smallwood Staff Surgeon: Alexis Schilling MD PhD Board Runner(s): same as above property management assistant: Efrain Deshpande MD Date: 12/21/2020 Clinical Diagnosis: skin and soft tissue defect status post Mohs micrographic surgery Location/Site: Left lateral canthus Indication: repair of wound with caodaism of anatomy/function Defect size to be repaired: 2.0 x 1.7 cm Procedure: transposition flap repair (tissue rearrangement) Final flap size: 4 x 3 cm 2 Procedure Details: Due to the size and location of the defect resulting from the complete removal of the tumor, the postoperative risk of hemorrhage, infection, and the possibility of serious deformity from scarring, and in order to restore proper function and prevent loss of function, the defect was closed with an advancement flap. The nature and purpose of the procedure, associated risks, possible consequences, complications andalternative methods of treatment were explained to the patient in detail. An informed consent was obtained. Local anesthesia was obtained with a solution of 1-% lidocaine with 1:100,000 epinephrine. The surgical site was prepped and draped in the usual sterile manner. Any beveled edges of the defect were repaired with a scalpel blade. The flap was created by making incisions along left zygoma. The flap and the wound edges were undermined, and hemostasis was obtained with electrocoagulation. The flap was transposed onto the defect.The skin edges were closed using 5.0 Monocryl dermal/subcutaneous sutures and 6.0 Prolene skin sutur es. Final flap size: 4x3 cm2. Estimated blood loss: Minimal. Complications: None. Wound care: Routine. Follow up for suture removal in 10 days. The patient was discharged in good condition. Total local anesthesia with 1% lidocaine with 1:100,000 epinephrine used: 9 cc Total local with 0.25% bupivacaine with 1:100,000 epinephrine used: 3 cc Post-operative medications: Keflex 500 mg by mouth twice daily x 5 days Alexis Schilling MD PhD Mohs Micrographic Surgery and Dermatologic Oncology Department of Dermatology [address] [place] [address] Note initiated by Nella Reddy CMA. Nella Reddy CMA has performed the documentation for this encounter in the presence of and acting as a scribe for Dr. Caitlyn Pringle performed the above scribed service and agree with the accuracy of the documentation in this encounter. Reviewed and signed by: Alexis Schilling Dermatology [facility] documented in this encounter Plan of Treatment Not on file documented as of this encounter Visit Diagnoses Diagnosis Basal cell carcinoma (BCC) of lateral canthus of left eye Prophylactic antibiotic Encounter for long-term (current) use of antibiotics documented in this encounter Care Teams Consultant Dietitian Relationship Specialty Start Date End Date Safia Pedroza APRN PCP - General Family Medicine 09/24/19 documented as of this encounter
--- OUTSIDE RECORDS SUMMARY | 2024-08-09 15:04 | XMS_ITS | Encounter Summary ---
Author Organization [facility] [place] [address] Care Team Providers Care Irrigation District Manager Name Role Phone Anitha Perry APRN Primary Care Provider [phone] Encounter Details Date Type Department Care Team (Late st Contact Info) Description 11/12/2010 1:00 PM EST [place] [id number] Bella Garduno PA [facility] [place] [address] Discharge Disposition: Home Social History Tobacco Use [...] on filedocumented in this encounter Care Teams Irrigation District Manager Relationship Specialty Start Date End Date Anitha Perry APRN PCP - General 08/07/10 02/25/19 documented as of this encounter
--- OUTSIDE RECORDS SUMMARY | 2024-08-09 15:04 | XMS_ITS | Patient Health Record ---
Author Organization [facility] Address [address] [place] [address] Care Team Providers Care Promotions Firm Accounts Manager Name Role Phone MASON HART Primary Care Provider Unavailabl e REASON FOR REFERRAL No Information MEDICATIONS Medication SIG (Take, Route, Frequency, Duration) Notes Start Date End Date Status Famotidine 20 MG 1 tablet at bedtime as needed Orally Once a day for 30 day(s) Active Amitriptyline HCl 100 MG 1 tablet at bedtime Orally 1-2 tabs HS Active Vitamin D3 50 MCG (1999) 1 tablet Orally Once a day Active MiraLax 17 GM/SCOOP 1 packet mixed with 8 ounces of fluid Orally Once a day Active Acidophilus - as directed Orally Active St Leonel Low Dose 81 MG 1 tablet Orally Once a day for 30 day(s) Active -OTC, HERBALS Varies Per patient Triamcinolo ne 0.25% lotion as needed, Vitamin B12, qd, Active Simvastatin 80 MG 1 tablet in the evening Orally Once a day for 30 day(s) pt states 100mg HS Active Amantadine HCl 100 MG 1 capsule Orally Once a day for 30 day(s) Active Pantoprazole Sodium 40 MG 1 tablet Orally Once a day for 30 day(s) Active PROBLEMS Problem Type ICD Code Onset Dates Problem Status W/U Status Risk SNOMED Code Notes Problem Unilateral primary osteoarthritis, right hip (M16.11) Active confirmed [id number] PLAN OF TREATMENT No Information Insurance Providers Payer Name Payer Address Payer Phone Subscriber Number Group Number Insured Name Patient Relationship to Insured Coverage Start Date Coverage End Date [employer] MEDICARE COMPLETE [address] [address] [place] [phone] [id number] ALTAGRACIA ZAMAN Self - patient is the [place] [address] [id number] ALTAGRACIA ZAMAN Self - patient is the insured [facility] HEALTHY [id number] ATTN [place] [address] [id number] PAULINA ZAMANAINE Self - patient is the insured SELF PAY [place] [address] [address] ALTAGRACIA ZAMAN Self - patient is the insured MEDICAL (GENERAL) HISTORY Medical History History ICD Code anemia back problems eye problems High Cholesterol Cramps and Numbness in feet or legs Surgical History Surgery Date(Month/Year) galbladder tubal ligation
--- OUTSIDE RECORDS SUMMARY | 2024-08-09 15:04 | XMS_ITS | Encounter Summary ---
Author Organization [facility] [place] [address] Care Team Providers Care Change Over Name Role Phone Anitha Perry APRN Primary Care Provider [phone] Encounter Details Date Type Department Care Team (Late st Contact Info) Description 12/05/2010 11:45 AM EDT [place] [phone] Brandy Brooks MD [facility] [place] [address] Discharge Disposition: Home Social History Tobacco Use [...] on filedocumented in this encounter Care Teams Change Over Relationship Specialty Start Date End Date Anitha Perry APRN PCP - General 08/07/10 02/25/19 documented as of this encounter
--- OUTSIDE RECORDS SUMMARY | 2024-08-09 15:04 | XMS_ITS | Encounter Summary ---
Author Organization [facility] Address [facility] [place] [address] Care Team Providers Care Supercharger Mechanic Name Role Phone PerkinsAnitha malloy BALTA Primary Care Provider [phone] Reason for Visit * Reason Comments Urinary Incontinence Encounter Details Date Type Department Care Team (Late st Contact Info) Description 01/08/2011 3:45 PM EDT Procedure [place] [phone] Brandy Brooks MD [facility] [place] [address] Incontinence (Primary Dx) Discharge Disposition: Home Social History Tobacco Use Types Packs/Day Years Used Date Smoking Tobacco: Never Assessed Sex and Gender Information Value Date Recorded Sex Assigned at Not on file Gender Identity Not on file Sexual Orientation Not on file documented as of this encounter Last Filed Vital Signs Vital Sign Reading Time Taken Comments Blood Pressure 130/97 01/08/2011 3:54 PM EDT Pulse 86 01/08/2011 3:54 PM EDT Temperature - - Respiratory Rate - - Oxygen Saturation - - Inhaled Oxygen Concentration - - Weight 81.6 kg (180 lb) 01/08/2011 3:54 PM EDT Height - - Body Mass Index - - documented in this encounter Progress Notes * Brandy Brooks MD - 01/08/2011 10:28 PM EDT Reason for Visit: Cortney Smallwood is a female aged 50 years who is here for her first collagen. She had urodynamics and a discussion of treatment options on 12/05/10. She has a history of stress and urge with stress predominant. Her VLPP was 80 at 150 ml. She has done behavioural changes. OBJECTIVE: Well looking woman in no acute distress. Collagen: see procedure note Imp: Pt with ISD or ANA type IIII. Plan: RTC 8 weeks for repeat collagen. documented in this encounter Procedure Notes * Brandy Brooks MD - 01/08/2011 10:31 PM EDTAssociated Order(s): CYSTOSCOPY Pre-Procedure Diagnose(s): Incontinence Post-Procedure Diagnose(s): Intrinsic (urethral) sphincter deficiency (ISD) PROCEDURE This is the patient's 1st injection. Indications: This patient has been incontinent since 1986. Previous urodynamics on 12/05/10 confirmed intrinsic sphincter dysfunction. Filling bladder pressures were stable. The patient had a skin test on 12/05/10 and this was negative. U/A: neg Procedure: The patient was placed in the lithotomy position and prepped and draped in the usual fashion. Lidocaine gel was instilled into the urethra. Using the Keane injection scope cystoscopy was performed. Full details of the cystoscopy are on the cysto sheet in the chart. Next 1 cc of 1% lidocaine was injected at the level of the bladder neck. Collagen was injected to close the bladder neck. A total of 2syringes were used. The bladder neck was coapted at the close of the procedure. The scope was then removed. The patient tolerated the procedure well. The patient was able to void. The PVR was checkedand was [minimal. The patient was given 1 cipro. A return appointment was made for 8 weeks. The patient has been told to call if there are problems prior to that. documented in this encounter Plan of Treatment Not on file documented as of this encounter Procedures Procedure Name Priority Date/Time Associated Diagnosis Comments CYSTOSCOPY Routine 01/08/2011 10:31 PM EDT Incontinence CYSTOSCOPY Routine 01/08/2011 10:31 PM EDT Incontinence documented in this encounter Results * Cystoscopy (01/08/2011 10:31 PM EDT) Narrative Brandy Brooks MD - 01/08/2011 10:31 PM EDT PROCEDURE This is the patient's ??1st injection. Indications: This patient has been incontinent since 1986. Previous urodynamics on 12/05/10 confirmed intrinsic sphincter dysfunction. Filling bladder pressures were stable. The patient had a skin test on 12/05/10 and this was negative. U/A: neg Procedure: The patient was placed in the lithotomy position and prepped and draped in the usual fashion. Lidocaine gel was instilled into the urethra. Using the Keane injection scope cystoscopy was performed. Full details of the cystoscopy are on the cysto sheet in the chart. Next 1 cc of 1% lidocaine was injected at the level of the bladder neck. Collagen was injected to close the bladder neck. A total of 2 syringes were used. The bladder neck was coapted at the close of the procedure. The scope was then removed. The patient tolerated the procedure well. The patient was able to void. The PVR was checked and was [minimal. ??The patient was given 1 cipro. ??A return appointment was made for 8 ??weeks. The patient has been told to call if there are problems prior to that. Procedure Note Brandy Brooks MD - 01/08/2011 10:31 PM EDT PROCEDURE This is the patient's 1st injection. Indications: This patient has been incontinent since 1986. Previousurodynamics on 12/05/10 confirmed intrinsic sphincter dysfunction. Fillingbladder pressures were stable. The patient had a skin test on 12/05/10 andthis was negative. U/A: neg Procedure: The patient was placed in the lithotomy position and prepped and draped inthe usual fashion. Lidocaine gel was instilled into the urethra. [facility] performed. Full details of thecystoscopy are on the cysto sheet in the chart. Next 1 cc of 1% lidocainewas injected at the level of the bladder neck. Collagen was injected toclose the bladder neck. A total of 2 syringes were used. The bladder neckwas coapted at the close of the procedure. The scope was then removed. Thepatient tolerated the procedure well. The patient was able to void. ThePVR was checked and was [minimal. The patient was given 1 cipro. Areturn appointment was made for 8 weeks. The patient has been told tocall if there are problems prior to that. Brandy Brooks MD PROCEDURE OR DERABLES documented in this encounter Visit Diagnoses Diagnosis Incontinence- Primary Unspecified urinary incontinence documented in this encounter Care Teams Supercharger Mechanic Relationship Specialty Start Date End Date Anitha Perry APRN PCP - General 08/07/10 02/25/19 documented as of this encounter
--- OUTSIDE RECORDS SUMMARY | 2024-08-09 15:04 | XMS_ITS | Encounter Summary ---
Author Organization [facility] Address [facility] [place] [address] Care Team Providers Care Patient Account Specialist Name Role Phone Safia Pedroaz APRN Primary Care Provider [phone] Encounter Details Date Type Department Care Team (Latest Contact Info) Description 10/18/2020 10:09 PM EST - 10/18/2020 11:59 PM EST Hospital [place] [phone] Discharge Disposition: Home Social History Tobacco Use Types Packs/Day Years Used Date Smoking Tobacco: Never Smokeless Tobacco: Never Alcohol Use Standard Drinks/Week Comments Not Asked 0 (1 standard drink = 0.6 oz pur e alcohol) Sex and Gender Information Value Date Recorded Sex Assigned at Not on file Gender Identity Not on file Sexual Orientation Not on file documented as of this encounter Medications at Time of Discharge Medication Sig Dispensed Refills Start Date End Date simvastatin (Zocor) 40 mg Tablet Take 40 mg by mouth nightly. 08/02/2020 pantoprazole EC (Protonix) 40 mg Tablet, Delayed Release (E.C.) Take 40 mg by mouth daily. 10/04/2020 Miralax 17 gram/dose Powder Take 17 g by mouth daily. 06/27/2020 amantadine (SYMMETREL) 100 mg Capsule Take 100 mg by mouth 2 times daily. promethazine (PHENERGAN) 25 mg Tablet Take 25 mg by mouth every 6 hours as needed for Nausea. cyanocobalamin, vitamin B-12, 1,000 mcg Tablet Take 2,500 mcg by mouth daily. b complex vitamins Capsule Take 1 capsule by mouth daily. Lactobacillus acidophilus (ACIDOPHILUS ORAL) Take by mouth. cholecalciferol, Vitamin D3, 2,000 unit Tablet Take by mouth. aspirin 81 mg Tablet, Chewable Take 81 mg by mouth daily. DULoxetine (CYMBALTA) 60 mg capsule Take 60 mg by mouth daily. amitriptyline (ELAVIL) 100 mg tablet Take 200 mg by mouth daily. 200 mg = 2 tablets documented as of this encounter Plan of Treatment Not on file documented as of this encounter Visit Diagnoses Not on filedocumented in this encounter Care Teams Patient Account Specialist Relationship Specialty Start Date End Date Safia Pedroza APRN PCP - General Family Medicine 09/24/19 documented as of this encounter
--- OUTSIDE RECORDS SUMMARY | 2024-08-09 15:04 | XMS_ITS | Encounter Summary ---
Author Organization [facility] Address [facility] [place] [address] Care Team Providers Care Taxonomy Teacher Name Role Phone None Primary Care Provider Unavailabl e Reason for Visit * Consultation (Routine) - Specialty Diagnoses / Procedures Referred By Layo t Referred To Contact Rheumatology Diagnoses Autoimmune inner ear disease Madison Martínez MD [facility] [address] [place] [id number] [facility] [address] [place] [phone] Referral ID Status Reason Start Date Expiration Date V isits Requested Visits Authorized [id number] 01/01/2019 01/01/2020 1 1 Encounter Details Date Type Department Care Team (Latest Contact Info) Description 03/01/2019 10:00 AM EDT Office [place] [address] Cory Link MD [facility] [place] [address] Primary osteoarthritis of both knees; Low back pain without sciatica, unspecified back pain laterality, unspecified chronicity; Benign paroxysmal positional vertigo, unspecified laterality Social History Tobacco Use Types Packs/Day Years [...] Sign Reading Time Taken Comments Blood Pressure 140/80 03/01/2019 9:57 AM EDT Pulse 85 03/01/2019 9:57 AM EDT Temperature 36.6 ??C (97.9 ??F) 03/01/2019 9:57 AM ED T Respiratory Rate - - Oxygen Saturation 99% 03/01/2019 9:57 AM EDT Inhaled Oxygen Concentration - - Weight 79.9 kg (176 lb 3.2 oz) 03/01/2019 9:57 A M EDT Height 165.1 cm (5' 5) 03/01/2019 9:57 AM EDT Body Mass Index 29.32 03/01/2019 9:57 AM EDT documented in this encounter Patient Instructions * Patient Instructions* Cory Link MD - 03/01/2019 10:00 AM EDT 1. Reassure that spontaneous recovery is present 2. Stop Methotrexate as no benefit after 4 months, may also stop folic acid 3. Follow up as needed. 4. Encourage hydration 16-24 ounces of water each am by 10 am documented in this encounter Progress Notes * Cory Link MD - 03/01/2019 10:00 AM EDT Chief Complaint: Help with my pain in my lower back, I just had injections. Had a TKR right in still having pain there and left knee. Did not mention autoimmune inner ear disease until questioned. Patient reports right, then left cheek numbness in 2016 followed by the development of pressure in the ears with vertigo without tinnitus or loss of hearing. Was followed by several doctors in [place] then [facility] where physician started her on MTX10 mg/week on 2 with no benefit with folicacid. Has not seen ENT at [facility]. Currently, she is troubled by what sounds like benign positional vertigo with turning head or looking up. These occur < 1-2 times a week. No longer occurs when lying down Still has maxiillary numbness, not painful. Never had shingles. Review of Systems Constitutional: No fevers, chills, chronic fatigue (4 years) Skin: no rashes HEENT: no sicca sx, sinus pain, frontal LUCAS vague, lancinating to lasting hours, change in taste. Respiratory: no chest pain, shortness of breath CV: no QUINTANA, angina sx, claudication Back: No sciatica, pain with standing GI: no abd pain, normal bowel movements : no dysuria, normal voiding, no nocturia Neuro: no focal deficit Patient Active Problem List Diagnosis Code ??? Urinary incontinence R32 ??? Intrinsic sphincter deficiency (ISD) N36.42 1. Fibromyalgia 2. Knee OA, right TKR 3. Diffuse Back pain, recent injections for spinal stenosis early February 2019 better 4. Cholecystectomy, tubal Social/Family Hx non contributory Physical Examination: Blood pressure 140/80, pulse 85, temperature 36.6 ??C (97.9 ??F), height 165.1 cm (5' 5), weight 79.9 kg (176 lb 3.2 oz), SpO2 99 %. General-Well developed well nourished who is alert and in no apparent distress at rest. Skin-No clubbing, cyanosis, rubor, edema, rash HEENT: No temporal artery, sinus or TMJ tenderness. Mucus membranes dry without lesions, poor dental hygiene .Normal parotid, submental and submandibular nodes Neck-Supple no bruits Chest: clear to auscultation, good air movement without wheezes Cor: RR no M,G,R Back: No tenderness to punch Ext: Extremities warm w// normal pulses Musculoskeletal: Trigger points not present despite reports of fibromyalgia Shoulders: FROM, no AC/subacromial tenderness. Elbows: Full motion, no joint or epicondylar swelling or tenderness. Wrists: Full motion, no swelling, no warmth, no tenderness over radiocarpal or ulnocarpal joints. Hands: Normal county treasurer and claw. SJC/TJC 0/0. Hips: Full motion, no trochanteric tenderness Knees: Full motion, no swelling, no popliteal or joint line tenderness. No patellar tenderness or crepitance. Pain with loading right knee. Ankles: No warmth, swelling, normal motion. No Achilles or plantar fascia tenderness. Feet: No deformity. Normal MTPJs no compression tenderness. Neuro: CN: EOMS intact no nystagmus, no provocation of sx with full endpoint extension, flexion or rotation No focal weakness, normal sensation, including JPS. Romberg normal Tandem gait borderline poot Labs: MRA head and neck 12.18 normal Anti-HSP 70 + all other labs normal Assess: 1. 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 No benefit from MTX for 4 months 3. Knee pain post TKR Recommend 1. Reassure that spontaneous recovery is present, encourage focus on right knee sx, great response to back injections 2. Stop Methotrexate as no benefit after 4 months, may also stop folic acid 3. Follow up as needed. 4. Encourage hydration 16-24 ounces of water each am by 10 am Level 5 consultation Cory Link M.D. documented in this encounter Plan of Treatment Not on file documented as of this encounter Visit Diagnoses Diagnosis Primary osteoarthritis of both knees Primary localized osteoarthrosis, lower leg Low back pain without sciatica, unspecified back pain laterality, unspecified chronicity Benign paroxysmal positional vertigo, unspecified laterality documented in this encounter Care Teams Taxonomy Teacher Relationship Specialty Start Date End Date None None PCP - General 02/26/19 09/23/19 documented as of this encounter
--- OUTSIDE RECORDS SUMMARY | 2024-08-09 15:04 | XMS_ITS | Encounter Summary ---
Author Organization [facility] [place] [address] Care Team Providers Care Furniture Decals Inspector Name Role Phone OsceolaAnitha malloy BALTA Primary Care Provider [phone] Encounter Details Date Type Department Care Team (Late st Contact Info) Description 08/13/2010 [place] [phone] Yulisa Fitzgerald PA [facility] [place] [address] Social History Tobacco Use Types Packs/Day Years Used Date Smoking Tobacco: Never Assessed Sex and Gender Information Value Date Recorded Sex Assigned at Not on file Gender Identity Not on file Sexual Orientation Not on file documented as of this encounter Plan of Treatment Not on file documented as of this encounter Procedures Procedure Name Priority Date/Time Associated Diagnosis Comments URINE CULTURE Routine 08/13/2010 2:20 PM EST documented in this encounter Results * URINE CULTURE (08/13/2010 2:20 PM EST) Urine Culture ? Patient Name: ALTAGRACIA ZAMAN ? Ordered By: YULISA FITZGERALD ? MR#: [id number] ?LOC: ??5B ? /Sex: ??1960 (50 years), ? Female ? PROCEDURE: Urine Culture ?SOURCE: T CC ? COLLECTED: 08/13/2010 14:20 ? STARTED: 08/13/2010 14:40 ? FINAL REPORT ? Final Report ? Verified: 07:38 ? No growth (Less than 1,000 cfu/ml). ? ___ ? ___ CERNER MILLENNIUM Urine specimen obtained by clean catch procedure (specimen) 08/13/2010 2:20 PM EST 08/13/2010 2:20 PM EST Yulisa JERNIGAN MICROBIOLOGY - GEN ERAL ORDERABLES PATRICK TUCKER documented in this encounter Visit Diagnoses Not on filedocumented in this encounter Care Teams Furniture Decals Inspector Relationship Specialty Start Date End Date Anitha Perry APRN PCP - General 08/07/10 02/25/19 documented as of this encounter
--- OUTSIDE RECORDS SUMMARY | 2024-08-09 15:04 | XMS_ITS | Encounter Summary ---
Author Organization [facility] [place] [address] Care Team Providers Care Plow Mechanic Name Role Phone Safia Pedroza APRN Primary Care Provider [phone] Reason for Visit * Reason Comments Skin Lesion left upper chest, le ft temporal/facial, and scalp sores Encounter Details Date Type Department Care Team ([facility] st Contact Info) Description 10/18/2020 1:00 PM EST Office Visit Dermatology at [address] [place] [address] Melody Kimball MD [address] [place] [address] Neoplasm of uncertain behavior Social History Tobacco Use Types Packs/Day Years [...] Sign Reading Time Taken Comments Blood Pressure - - Pulse - - Temperature - - Respiratory Rate - - Oxygen Saturation - - Inhaled Oxygen Concentration - - Weight 83.5 kg (184 lb) 10/18/2020 1:05 PM EST Height 165.1 cm (5' 5) 10/18/2020 1:05 PM EST Body Mass Index 30.62 10/18/2020 1:05 PM EST documented in this encounter Progress Notes * Melody Kimball MD - 10/18/2020 1:00 PM EST Images from the original note were not included. DERMATOLOGY - ESTABLISHED PATIENT FOLLOW-UP Date of service: 10/18/2020 Cortney Smallwood : 1960, 60 y.o. CC: spot on lateral left canthus, spots on scalp and spot on left chest HPI: Cortney Smallwood is a 60 y.o. female last seen by dr Mendoza 10/05 for paronychia Ms. Smallwood returns today for spots on scalp that she has been picking at. No treatment A spot on left chest which she picked out and squeezed, white stuff came out and now it is healing Spot by left eye that has bene growing Relevant Skin History: - Okay to leave detailed message with results? yes Skin Cancer History Social History: - n/a Medications: Current Outpatient Medications Medication Sig Dispense Refill ??? amantadine (SYMMETREL) 100 mg Capsule Take 100 mg by mouth 2 times daily. ??? promethazine (PHENERGAN) 25 mg Tablet Take 25 mg by mouth every 6 hours as needed for Nausea. ??? cyanocobalamin, vitamin B-12, 1,000 mcg Tablet Take 2,500 mcg by mouth daily. ??? b complex vitamins Capsule Take 1 capsule by mouth daily. ??? Lactobacillus acidophilus (ACIDOPHILUS ORAL) Take by mouth. ??? cholecalciferol, Vitamin D3, 2,000 unit Tablet Take by mouth. ??? aspirin 81 mg Tablet, Chewable Take 81 mg by mouth daily. ??? DULoxetine (CYMBALTA) 60 mg capsule Take 60 mg by mouth daily. ??? amitriptyline (ELAVIL) 100 mg tablet Take 200 mg by mouth daily. 200 mg = 2 tablets ??? simvastatin (Zocor) 40 mg Tablet Take 40 mg by mouth nightly. ??? pantoprazole EC (Protonix) 40 mg Tablet, Delayed Release (E.C.) Take 40 mg by mouth daily. ??? Miralax 17 gram/dose Powder Take 17 g by mouth daily. No current facility-administered medications for this visit. Allergies: Allergies Allergen Reactions ??? Seasonale [Levonorgestrel-Ethinyl Estrad] Runny nose watery eyes ??? Morphine Review of Systems: - General: Feels well. - Skin: No other skin concerns. Examination: - Constitutional: Patient was alert, well-appearing and in no noticeable distress. - Skin: Skin examination of the eyes, scalp, chest, and neck Diagnosis/Skin findings/Assessment/Plan: 1. Cyst, s/p self I&D at home -Reassured, do no pick, let this heal, apply vaseline BID to prevent infection, if returns, return to clinic for evaluation 2. Excoriations, scalp -self induced. This can lead to prurigo nodularis. Stop picking and allow to heal using vaseline BID 3. Neoplasm uncertain behavior, rule out BCC vs Efrain Hyp vs SK BIOPSY PROCEDURE NOTE LOCATION: left lateral canthus Verbal consent was given by patient to obtain and chart photographs into [facility] if applicable. Verbal consent obtained to perform a diagnostic skin biopsy after risks and benefits of the procedure were reviewed with the patient including but not limited to bleeding, infection, scar, cosmetic defect, recurrence, damage to underlying structures and failure to diagnose. SHAVE BIOPSY After swabbing the area with isopropyl alcohol, the area was anesthetized with Lidocaine with 1:100,000 epinephrine and a biopsy was taken. Hemostasis obtained and the wound was dressed with Vaselineand a dressing. There were no complications. The patient tolerated the procedure well. Post-procedure expectations, wound care and activity restrictions were reviewed. The patient was told to expect results by the end of 2 weeks, and to call if they have not receivedthe results by that time. RTC: PRN Note initiated by Melody Kimball MD. Melody Kimball MD Civil Engineering Manager Department of Dermatology [facility] * Melody Kimball MD - 10/18/2020 1:00 PM EST Please call patient and schedule for Mohs * Manasa Garcia LPN - 10/18/2020 1:00 PM EST Spoke with patient today regarding her biopsy results. Per Dr. Kimball it showed a BCC and further treatment is needed with Mohs surgery. Explained What a BCC is and what Mohs surgery is. Answeredpatient questions and referral to Mohs was sent. documented in this encounter Plan of Treatment Not on file documented as of this encounter Procedures Procedure Name Priority Date/Time Associated Diagnosis Comments SPECIMEN TO PATHOLOGY Routine 10/18/2020 1:22 PM EST Neoplasm of uncertain behavior SURGICAL PATHOLOGY REPORT Routine 10/18/2020 1:21 PM EST documented in this encounter Results * Specimen to Pathology (10/18/2020 1:22 PM EST) AP Specimen 10/18/2020 1:22 PM EST 10/18/2020 1:22 PM EST Narrative [facility] - 10/18/2020 1:22 PM EST Specimen requisition ordered. ??Separate Pathology report to follow Melody Kimball MD PATHOLOGY/CYTOLOGY ORDERABLES [facility] [place] [address] * Surgical Pathology Report (10/18/2020 1:21 PM EST) Final Diagnosis [id number] ? Location: LID The signing pathologist has (i) examined the relevant preparation(s) for the specimen(s) and (ii) rendered or confirmed the diagnosis(es). . ?Surgical Pathology DIAGNOSIS Left lateral canthus, skin biopsy: - ??Basal cell carcinoma, nodular pattern, transected at the base Electronically signed by: ??Mesfin SEARS, PhD, [place] Verified: ??10/20/2020 ?Dermatopathol ogist Performed at: ??[place] [place], [place] SPECIMEN(S) SUBMITTED A - left lateral canthus, biopsy (1) CLINICAL INFORMATION 7 mm pink papule R/O basal cell carcinoma vs seborrheic keratosis vs sebaceous hyperplasia SPECIMEN PROCESSING A - Labeled/Fixativ e: Patient demographics, formalin. Quantity/Size: ??Two, 0.3 x 0.1 cm, and 0.4 x 0.2 cm. Tissue Description: Nonoriented, irregular perales-white skin shaves. Sections/Proces sing: Each skin shave is separately submitted. Submitted en toto in 2 cassettes labeled A1-A2. ??shb 10/20/2020 9:28 AM EST [facility] SPECIMEN FROM SKIN / Unknown 10/18/2020 1:21 PM EST 10/18/2020 1:21 PM EST Melody Kimball MD PATHOLOGY/CYTOLOGY ORDERABLES [facility] [place] [address] documented in this encounter Visit Diagnoses Diagnosis Neoplasm of uncertain behavior Neoplasm of uncertain behavior, site unspecified documented in this encounter Care Teams Plow Mechanic Relationship Specialty Start Date End Date Safia Pedroza, DIAL EQUIPMENT ENGINEER PCP - General Family Medicine 09/24/19 documented as of this encounter
--- OUTSIDE RECORDS SUMMARY | 2024-08-09 15:04 | XMS_ITS | Encounter Summary ---
Author Organization [facility] [place] [address] Care Team Providers Care Non Clinical Advisor Name Role Phone Safia Pedroza LITHOSTRIPPER Primary Care Provider [phone] Reason for Visit * Reason Comments Skin Lesion * Consultation (Routine) - Specialty Diagnoses / Procedures Referred By Layo milton Referred To Contact Dermatology Diagnoses Ingrowing nail Ingrown nail right thumb Procedures Consult Safia Pedroza, BALTA [address] [place] [address] Chad Mendoza MD [address] [facility] [place] [address] Referral ID Status Reason Start Date Expiration Date V isits Requested Visits Authorized [id number] 03/25/2019 03/24/2020 1 1 Encounter Details Date Type Department Care Team (Late st Contact Info) Description 09/24/2019 9:00 AM EST Office Visit Dermatology at [place] [address] [facility] [place] [address] Chad Mendoza MD [address] [facility] D[facility] [place], [place] [id number] Paronychia of right thumb Social History Tobacco Use Types Packs/Day Years Used Date Smoking Tobacco: Never Smokeless Tobacco: Never Alcohol Use Standard Drinks/Week Comments Not Asked 0 (1 standard drink = 0.6 oz pur e alcohol) Sex and Gender Information Value Date Recorded Sex Assigned at Not on file Gender Identity Not on file Sexual Orientation Not on file documented as of this encounter Progress Notes * Chad Mendoza MD - 09/24/2019 9:00 AM EST Problem: Right ingrown thumbnail Cortney is a 59-year-old woman who was referred in March by Safia Pedroza for an ingrowing right thumbnail. It did not improve with warm water soaks and trying to work the tissue back from the nail. Instead the patient was able to trim back and find a splinter section of nail that had from the distal distal nail edge and was growing a laterally into her thumb. Since then the area has resolved. She is never had problems before with ingrown fingernails, occasionally she would get them on her toenails. Physical examination reveals a pleasant 59-year-old man who has today no paronychia no active erythema no signs of any ingrown fingernails. The affected right thumb appears unremarkable. It is trimmed appropriately with a gently curved thin distal distal nail edge. There is no inflammation of the of the lateral nail folds today. Assessment and plan: Right thumbnail paronychia, resolved 1. Patient given prescription for thymol 3% in ethyl alcohol to have on hand in case she has a recurrence, or new development in her toenails. Apply twice daily to affected nails until area clears 2. Stressed as did Safia Pedroza also on the appropriate trimming of the nails. 3. Congratulated on her success in treating this on her own. 4. Return to clinic here as needed Cc: Safia Pedroza APRN documented in this encounter Plan of Treatment Not on file documented as of this encounter Visit Diagnoses Diagnosis Paronychia of right thumb Onychia and paronychia of finger documented in this encounter Care Teams Non Clinical Advisor Relationship Specialty Start Date End Date Safia Pedroza APRN PCP - General Family Medicine 09/24/19 documented as of this encounter
--- OUTSIDE RECORDS SUMMARY | 2024-08-09 15:04 | XMS_ITS | Encounter Summary ---
Author Organization [facility] Address [facility] [place] [address] Care Team Providers Care Application Processor Name Role Phone Safia Pedroza APRN Primary Care Provider [phone] Reason for Referral * Consultation (Routine) - Closed Specialty Diagnoses / Procedures Referred By Layo t Referred To Contact Dermatology Diagnoses Basal cell carcinoma (BCC), unspecified site Melody Kimball MD [address] [place] [address] Alexis Schilling MD [facility] [address] MAGDALENA [place] [address] Referral ID Status Reason Start Date Expiration Date V isits Requested Visits Authorized [id number] Closed Consult, Test & Treat 10/31/2020 10/31/2021 1 1 Encounter Details Date Type Department Care Team ([facility] st Contact Info) Description 10/31/2020 Orders Only Dermatology at [address] [address] Melody Kimball MD [address] [place] [phone] Basal cell carcinoma (BCC), unspecified site Social History Tobacco Use Types Packs/Day Years Used Date Smoking Tobacco: Never Smokeless Tobacco: Never Alcohol Use Standard Drinks/Week Comments Not Asked 0 (1 standard drink = 0.6 oz pur e alcohol) Sex and Gender Information Value Date Recorded Sex Assigned at Not on file Gender Identity Not on file Sexual Orientation Not on file documented as of this encounter Plan of Treatment Scheduled Referrals Name Type Priority Associated Diagnoses Orde r Schedule Referral to Dermatology Outpatient Referral Routine Basal cell carcinoma (BCC), unspecified site Ordered: 10/31/2020 documented as of this encounter Visit Diagnoses Diagnosis Basal cell carcinoma (BCC), unspecified site documented in this encounter Care Teams Application Processor Relationship Specialty Start Date End Date Safia Pedroza APRN PCP - General Family Medicine 09/24/19 documented as of this encounter
--- OUTSIDE RECORDS SUMMARY | 2024-08-09 15:04 | XMS_ITS | Encounter Summary ---
Author Organization [facility] [place] [address] Care Team Providers Care Manager Operations Research Name Role Phone Anitha Perry APRN Primary Care Provider [phone] Reason for Visit * Reason Comments Urinary Incontinence Encounter Details Date Type Department Care Team (Late st Contact Info) Description 03/12/2011 2:00 PM EDT Procedure [place] [address] Brandy Brooks MD [facility] [address] Urinary incontinence (Primary Dx) Discharge Disposition: Home Social History [...] Sign Reading Time Taken Comments Blood Pressure 138/78 03/12/2011 2:56 PM EDT Pulse 93 03/12/2011 2:56 PM EDT Temperature - - Respiratory Rate - - Oxygen Saturation - - Inhaled Oxygen Concentration - - Weight 86.2 kg (190 lb) 03/12/2011 2:02 PM EDT Height 165.1 cm (5' 5) 03/12/2011 2:02 PM EDT Body Mass Index 31.62 03/12/2011 2:02 PM EDT documented in this encounter Plan of Treatment Scheduled Orders Name Type Priority Associated Diagnoses Orde r Schedule Cystoscopy PROCEDURE Routine Urinary incontinence Ordered: 03/12/2011 documented as of this encounter Visit Diagnoses Diagnosis Urinary incontinence- Primary Unspecified urinary incontinence documented in this encounter Care Teams Manager Operations Research Relationship Specialty Start Date End Date Anitha Perry APRN PCP - General 08/07/10 02/25/19 documented as of this encounter
--- OUTSIDE RECORDS SUMMARY | 2024-08-09 15:04 | XMS_ITS | Clinical Summary ---
Author Organization [facility] Address [facility] [place] [address] Care Team Providers Care Insurance Billing Specialist Name Role Phone Safia Pedroza EDGER FEEDER Primary Care Provider [phone] Allergies Active Allergy Reactions Criticality Noted Date Comments Morphine 09/24/2019 Levonorgestrel-Ethinyl Estrad High 03/01/2019 Runny nose watery eyes Medications Medication Sig Dispensed Refills Start Date End Date Status amitriptyline (ELAVIL) 100 mg tablet Take 200 mg by mouth daily. 200 mg = 2 tablets Active DULoxetine (CYMBALTA) 60 mg capsule Take 60 mg by mouth daily. Active amantadine (SYMMETREL) 100 mg Capsule Take 100 mg by mouth 2 times daily. Active promethazine (PHENERGAN) 25 mg Tablet Take 25 mg by mouth every 6 hours as needed for Nausea. Active cyanocobalamin, vitamin B-12, 1,000 mcg Tablet Take 2,500 mcg by mouth daily. Active b complex vitamins Capsule Take 1 capsule by mouth daily. Active Lactobacillus acidophilus (ACIDOPHILUS ORAL) Take by mouth. Ac tive cholecalciferol, Vitamin D3, 2,000 unit Tablet Take by mouth. Active aspirin 81 mg Tablet, Chewable Take 81 mg by mouth daily. Active simvastatin (Zocor) 40 mg Tablet Take 40 mg by mouth nightly. 08/02/2020 Active pantoprazole EC (Protonix) 40 mg Tablet, Delayed Release (E.C.) Take 40 mg by mouth daily. 10/04/2020 Active Miralax 17 gram/dose Powder Take 17 g by mouth daily. 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 Urinary incontinence 05/21/2011 Social History Tobacco Use Types Packs/Day Years Used Date Smoking Tobacco: Never Smokeless Tobacco: Never Alcohol Use Standard Drinks/Week Comments Not Asked 0 (1 standard drink = 0.6 oz pur e alcohol) Sex and Gender Information Value Date Recorded Sex Assigned at Not on file Gender Identity Not on file Sexual Orientation Not on file Last Filed Vital Signs Vital Sign Reading Time Taken Comments Blood Pressure 143/75 12/21/2020 11:54 AM EDT Pulse 80 12/21/2020 11:54 AM EDT Temperature 36.6 ??C (97.9 ??F) 03/01/2019 9:57 AM ED T Respiratory Rate - - Oxygen Saturation 99% 03/01/2019 9:57 AM EDT Inhaled Oxygen Concentration - - Weight 83.5 kg (184 lb) 10/18/2020 1:05 PM EST Height 165.1 cm (5' 5) 10/18/2020 1:05 PM EST Body Mass Index 30.62 10/18/2020 1:05 PM EST Plan of Treatment Health Maintenance Due Date Last Done Comments CT Colonography 1960 Colonoscopy 1960 Colorectal Cancer Screening 1960 FIT DNA 1960 FIT 1960 Sigmoidoscopy (10 year) with FIT yearly 1960 Sigmoidoscopy 1960 Hepatitis C Screening 1976 Tetanus/Diphtheria/Pertussis Vaccines (1 - Tdap) 08/05 HPV test 1988 PAP Smear 1988 Breast Cancer Share Decision Needed 1998 Breast Cancer screening 1998 Zoster vaccine (1 of 2) 2008 Advance Directive 2013 Bone Density Scan 2023 Pneumoccocal Vaccine: 65+ (1 of 1 - PCV) 2023 Covid-19 Vaccine (1 - 2023- season) 2024 Influenza (Flu) vaccine (1 o f 1 - Influenza standard series) 05/16/2024 Care Teams Insurance Billing Specialist Relationship Specialty Start Date End Date Safia Pedroza, BALTA PCP - General Family Medicine 09/24/19
--- OUTSIDE RECORDS SUMMARY | 2024-08-09 15:04 | XMS_ITS | Encounter Summary ---
[place] [address] Care Team Providers Care Hole Digger Truck Driver Name Role Phone Anitha Perry APRN Primary Care Provider [phone] Encounter Details Date Type Department Care Team (Late st Contact Info) Description 05/21/2011 [place] [address] Yecenia Yanez RN Social History Tobacco Use Types Packs/Day Years [...] on filedocumented in this encounter Care Teams Hole Digger Truck Driver Relationship Specialty Start Date End Date Anitha Perry APRN PCP - General 08/07/10 02/25/19 documented as of this encounter
--- OUTSIDE RECORDS SUMMARY | 2024-08-09 15:04 | XMS_ITS | Encounter Summary ---
Author Organization [facility] [place] [address] Care Team Providers Care Felt Tipping Machine Tender Name Role Phone Safia Pedroza APRN Primary Care Provider [phone] Reason for Visit * Reason Onset Date Comments Request For Record 10/18/2020 Encounter Details Date Type Department Care Team (Late st Contact Info) Description 10/18/2020 Telephone Dermatology at [address] [address] Francia Garcia, RN Request For Record Social History Tobacco Use Types Packs/Day Years [...] encounter Miscellaneous Notes * Telephone Encounter - Francia Garcia, RN - 10/18/2020 2:54 PM EST Records request sent at patient's request to Past dermatology provider Dr. Theresa Schmidt [facility] [address] [facility] [address] [place] [address] This nurse asked for previous 5 years, pathology, skin treatment or surgery, progress notes by retail cosmetics sales counter manager. documented in this encounter Plan of Treatment Not on file documented as of this encounter Visit Diagnoses Not on filedocumented in this encounter Care Teams Felt Tipping Machine Tender Relationship Specialty Start Date End Date Safai Pedroza APRN PCP - General Family Medicine 09/24/19 documented as of this encounter
--- OUTSIDE RECORDS SUMMARY | 2024-08-09 15:04 | XMS_ITS | Encounter Summary ---
Author Organization [facility] Address [address] [place] [address] Care Team Providers Care Cloth Feeder Name Role Phone Unavailable Primary Care Provider Unavailabl e Encounter Details Date Type Department Care Team (Late st Contact Info) Description 06/03/[address] [facility] conversion [address] [place] [address] Cory Artis MD [address] [place], [place] [id number] Social History Tobacco Use Types Packs/Day Years [...] Date/Time Associated Diagnosis Comments SURGICAL PATHOLOGY Routine 06/03/2001 0:00 EDT documented in this encounter Results * SURGICAL PATHOLOGY (06/03/2001 0:00 EDT) Pathology Report: SURGICAL PATHOLOGY REPORT Reports generated via electronic interface contain original data; however they are lacking the format of the original report. Caution should be taken when reading/interpreti ng unformatted reports. Name: ? ALTAGRACIA ZAMAN ? Accession #: ? [id number] ? : ? 1960 (Age: 40) ??F ? Collect Date: ? 06/03/2001 ? Location: ? [facility] ? Receive Date: ? 06/04/2001 ? Provider: CORY ARTIS MD Copy to: SERGIO CARBONE MD ? Final Pathologic Diagnosis: ? Endometrium, biopsy: - Late secretory endometrium, approximately day 26. ?? Document reviewed and electronically signed by: Jonh Love MD Report ??Date: 06/08/2001 17:50 By the signature above, the attending physician certifies that he/she has personally conducted a gross and/or microscopic examination of the described specimens and rendered or confirmed the above diagnosis. Specimen(s) Received: ? Endometrial bx tissue Clinical History: ? AUB- no hormones; clinical diagnosis code: ??626.9 Gross Description: ? Received in formalin labelled [place] and endometrial bx is a 2.5 x 2.3 x 0.7 cm aggregate of multiple pink jackson to red brown focally hemorrhagic slightly lobular soft tissue fragments. ??The specimen is entirely submitted in cassettes (A1) and (A2). ??(Zack Gunn)/case End of Report [facility] 06/03/2001 06/04/2001 15: 38 EDT us Cory Artis MD PATHOLOGY ORDERABLES Final Resul t [facility] [address] [place] [address] documented in this encounter Visit Diagnoses Not on filedocumented in this encounter
--- OUTSIDE RECORDS SUMMARY | 2024-08-09 15:04 | XMS_ITS | Encounter Summary ---
[place] [address] Care Team Providers Care Entry Specialist Name Role Phone JonathanSafia doss Gerardo GIFFORD Primary Care Provider [phone] Reason for Referral * Diagnostic Test (Routine) - Closed Specialty Diagnoses / Procedures Referred By Layo t Referred To Contact Gastroenterology Diagnoses Pyrosis Heartburn HREM heartburn Procedures High Resolution Esophageal Manometry PRG UNLISTED DIAGNOSTIC GASTROENTEROLOGY PROCEDURE PRG ESOPHAGEAL MOTILITY STUDY PRG GERD TST W NASAL IMPEDENCE ELECTROD HREM heartburn Carmina Becker APRN [address] [place] [address] [facility] [place] [address] [place] [address] Referral ID Status Reason Start Date Expiration Date V isits Requested Visits Authorized [id number] Closed Test Only PCP Updated and/or Approved 03/01/2022 03/01/2023 1 1 Encounter Details Date Type Department Care Team (Late st Contact Info) Description 03/01/2022 Transcribe Orders eDH Incoming Referrals [phone] Carmina Becker APRN [address] [place], [place] [phone] Pyrosis; Heartburn Social History Tobacco Use Types Packs/Day Years [...] of this encounter Plan of Treatment Scheduled Orders Name Type Priority Associated Diagnoses Orde r Schedule High Resolution Esophageal Manometry GI Routine Pyrosis Heartburn Expected: 03/31/2022 (Approximate), Expires: 03/01/2023 documented as of this encounter Visit Diagnoses Diagnosis Pyrosis Heartburn Heartburn documented in this encounter Care Teams Entry Specialist Relationship Specialty Start Date End Date Safia Pedroza APRN PCP - General Family Medicine 09/24/19 documented as of this encounter
--- OUTSIDE RECORDS SUMMARY | 2024-08-09 15:04 | XMS_ITS | Encounter Summary ---
Author Organization [facility] [place] [address] Care Team Providers Care Gas Leak Inspector Name Role Phone Anitha Perry APRN Primary Care Provider [phone] Encounter Details Date Type Department Care Team (Late st Contact Info) Description 08/13/2010 10:30 AM EST [place] [id number] Bella Garduno, [place] [facility] [place] [address] Social History Tobacco Use Types Packs/Day Years Used Date Smoking Tobacco: Never Assessed Sex and Gender Information Value Date Recorded Sex Assigned at Not on file Gender Identity Not on file Sexual Orientation Not on file documented as of this encounter Plan of Treatment Not on file documented as of this encounter Visit Diagnoses Not on filedocumented in this encounter Care Teams Gas Leak Inspector Relationship Specialty Start Date End Date Anitha Perry APRN PCP - General 08/07/10 02/25/19 documented as of this encounter
--- OUTSIDE RECORDS SUMMARY | 2024-08-09 15:04 | XMS_ITS | Encounter Summary ---
Author Organization [facility] Address [address] [place] [address] Care Team Providers Care International Specialist Name Role Phone Unavailable Primary Care Provider Unavailabl e Encounter Details Date Type Department Care Team (Late st Contact Info) Description 07/13/2003 Results Only [facility] conversion [address] [place] [address] Anitha Vale, HEALTH POLICY NURSE [facility] [address] [place], [place] [phone] Social History Tobacco Use Types Packs/Day Years [...] Priority Date/Time Associated Diagnosis Comments CYTOPATHOLOGY Routine 07/13/2003 0:00 EST documented in this encounter Results * CYTOPATHOLOGY (07/13/2003 0:00 EST) Pathology Report: CYTOPATHOLOGY REPORT Reports generated via electronic interface contain original data; however they are lacking the format of the original report. Caution should be taken when reading/interpreti ng unformatted reports. Name: ? ALTAGRACIA ZAMAN ? Accession #: ? [id number] : ? 1960 (Age: 42) ??F ?Collect Date: ? 07/13/2003 Location: ? [facility] ? Receive Date: ? 07/15/2003 Provider: ?ANITHA VALE HEALTH POLICY NURSE Copy to: ? Specimen/Source: ?ThinPrep Pap Test, Cervix/Endocervix Last Menstrual Period: ? 06/13/03 ? SPECIMEN ADEQUACY ? Unsatisfactory for Evaluation, - insufficient numbers of squamous epithelial cells (less than 10% of expected cellularity) GENERAL CATEGORIZATION ? Specimen processed and examined, but unsatisfactory for evaluation of epithelial abnormality. Recommend repeat Pap test or further follow up, as clinically indicated. ? Document reviewed and electronically signed by: ? LESVIA Calvillo(ASCP)(IAC) ? Report Date: ??07/20/2003 16:55 End of Report TERRELL MENDIOLA 07/13/2003 07/15/2003 us Anitha Vale HEALTH POLICY NURSE PATHOLOGY ORDERABLES Final Resu lt TERRELL MENDIOLA [address] [place] [address] documented in this encounter Visit Diagnoses Not on filedocumented in this encounter
--- OUTSIDE RECORDS SUMMARY | 2024-08-09 15:04 | XMS_ITS | Encounter Summary ---
Author Organization [facility] [place] [address] Care Team Providers Care Servicenow Administrator Name Role Phone Anitha Perry APRN Primary Care Provider [phone] Reason for Visit * Reason Comments Follow-up coaptite injection Encounter Details Date Type Department Care Team (Late st Contact Info) Description 07/24/2011 2:00 PM EST Procedure [place] [id number] Brandy Brooks [facility] [place] [address] Intrinsic sphincter deficiency (ISD) (Primary Dx) Discharge Disposition: Home Social History [...] Sign Reading Time Taken Comments Blood Pressure 97/62 07/24/2011 1:48 PM EST Pulse 92 07/24/2011 1:48 PM EST Temperature - - Respiratory Rate - - Oxygen Saturation - - Inhaled Oxygen Concentration - - Weight 86.2 kg (190 lb) 07/24/2011 1:19 PM EST Height 165.1 cm (5' 5) 07/24/2011 1:19 PM EST Body Mass Index 31.62 07/24/2011 1:19 PM EST documented in this encounter Patient Instructions * Patient Instructions* Mari Fair LPN - 07/24/2011 2:10 PM EST Instructions following Cystoscopy Activity: As tolerated by your comfort level. Fluids: You should increase your water today. Avoid coffee, tea and cola. You do not need to [id number] ounces of water today. Urination: You will likely have a small amount of blood in your urine for the next several days. This is normal; however, if you are passing large amounts of blood clots or are unable to void please call our office at [phone] before 5PM or [phone] after hours. Please call if: * you have copious blood in your urine * fevers greater than 101.3 F * you are unable to void The number for questions is [phone] before 5 PM weekdays and [phone] after 5 PM and weekends. Follow-up: We should repeat your cystoscopy in 8 weeks if necessary. documented in this encounter Progress Notes * Brandy Brooks MD - 07/28/2011 12:45 PM EST Coapatite injection: This is the [...] injections were performed on 01/08/11, 03/12/11 and 05/24/11. Vitals: see cysto sheet U/A: neg See procedure note Imp: intrinsic sphincter dysfunction Plan: return to clinic in 8 weeks. documented in this encounter Procedure Notes * Brandy Brooks MD - 07/28/2011 12:51 PM ESTAssociated Order(s): CYSTOURETHROSCOPY Pre-Procedure Diagnose(s): Intrinsic (urethral) sphincter deficiency (ISD) Post-Procedure Diagnose(s): Intrinsic (urethral) sphincter deficiency (ISD) Procedure: The patient was placed in the lithotomy position and prepped and draped in the usual fashion. Lidocaine gel was instilled into the urethra. Using an injection scope cystoscopy was performed. The cysto was normal. Next 1 cc of 1% lidocaine was injected at the level of the bladder neck. Coapatite wasinjected to close the bladder neck. A total of 1 syringe was used. The bladder neck was coapted at the close of the procedure. The scope was then removed. The patient tolerated the procedure well. The patient was able to void. The PVR was checked and was min. The patient was given 1 cipro pre op. Areturn appointment was made for 8 weeks. The patient has been told to call if there are problems prior to that. documented in this encounter Plan of Treatment Not on file documented as of this encounter Results * Cystourethroscopy (07/28/2011 12:53 PM EST) Brandy Brooks MD URO PROCEDURE W RFL ORDERABLES documented in this encounter Visit Diagnoses Diagnosis Intrinsic sphincter deficiency (ISD)- Primary Intrinsic (urethral) sphincter deficiency (ISD) documented in this encounter Care Teams Servicenow Administrator Relationship Specialty Start Date End Date Anitha Perry APRN PCP - General 08/07/10 02/25/19 documented as of this encounter
--- OUTSIDE RECORDS SUMMARY | 2024-08-09 15:04 | XMS_ITS | Encounter Summary ---
[place] [address] Care Team Providers Care Awning Maker And Installer Name Role Phone Safia Pedroza CREDIT ASSOCIATE Primary Care Provider [phone] Reason for Visit * Diagnostic Test (Routine) - Closed Specialty Diagnoses / Procedures Referred By Contkriss t Referred To Contact Gastroenterology Diagnoses Pyrosis Heartburn HREM heartburn Procedures High Resolution Esophageal Manometry PRG UNLISTED DIAGNOSTIC GASTROENTEROLOGY PROCEDURE PRG ESOPHAGEAL MOTILITY STUDY PRG GERD TST W NASAL IMPEDENCE ELECTROD HREM heartburn Carmina Becker W, CREDIT ASSOCIATE [address] [place] [address] [facility] [place] [address] [address] Referral ID Status Reason Start Date Expiration Date V isits Requested Visits Authorized [id number] Closed Test Only PCP Updated and/or Approved 03/01/2022 03/01/2023 1 1 Encounter Details Date Type Department Care Team (Late st Contact Info) Description 07/19/2022 11:00 AM EDT Procedure [place] [address] Pyrosis; Heartburn Social History Tobacco Use Types [...] as of this encounter Progress Notes * Brandy Doe RN - 07/19/2022 11:00 AM EDT A description of the esophageal manometry procedure was provided to the patient and her son. All questions were answered and the patient verbalized understanding. The HREM catheter was placed via the left naris without difficulty. The esophageal manometry procedure was performed and the catheter was removed. The patient tolerated the procedure well. * Abner Hong MD - 07/19/2022 11:00 AM EDT Images from the original note were not included. HIGH-RESOLUTION ESOPHAGEAL MANOMETRY PROCEDURE NOTE Patient: Cortney Smallwood Address: [address] [id number] : 1960 Date of service: 07/19/2022 Indication: Heartburn Procedure: The patient arrived after an overnight fast. After verbal consent, a Gela motility catheter with 36 circumferential sensors on 1 cm spacing with impedance sensors was inserted transnasally after application of topical anesthesia to the nasal passage. The catheter was positioned so that at least 2distal sensors were in the stomach and 2 proximal sensors were located above the UES. A 3-5 minute a cclimation period was provided followed by 10 wet swallows of 5 cc of water while supine. Normal values while supine: Upper esophageal sphincter residual pressure: < 12 mmHg Upper esophageal sphincter relaxation duration: > 480 msec Distal contractile integral (DCI): > 450 and < 8,000 mmHg x cm x s Distal latency time: > 4.5 sec Integrated EGJ relaxation pressure (IRP): < 15 mmHg Normal EGJ resting pressure (respiratory mean): 15-34 mmHg Findings: - Upper Esophageal Sphincter: normal mean residual pressure and relaxation duration - Body: 0% of swallows failed. 0% of swallows had premature contractions with shortened distal latency time. The remaining 100% of swallows were peristaltic, includin% of swallows with hypercontractility, 0% of swallows with weak peristalsis, and 10% of swallows with large breaks (>5 cm) in the 20mmHg isocontour line. - Esophagogastric Junction: Midpoint located 38 cm from the nares, and proximal extent located at 36 cm. 1cm hiatal hernia present. Normal resting pressure (mean 24 mmHg) and elevated IRP in 90% of swallows (median 16.3 mmHg). - Bolus transit: Liquid boluses cleared in 90% of swallows. - Five subsequent upright swallows: Integrated relaxation pressure: 8.2 mmHg (normal <12 mmHg) - Multiple rapid swallows: Peristaltic reserve: intact (ratio of post-multiple rapid swallow DCI to median DCI on 10 supine swallows is >=1.0) Deglutitive inhibition: normal deglutitive inhibition (DCI <100 mmHg*s*cm) during the maneuver Integrated relaxation pressure: 3 mmHg (normal <12 mmHg) - Rapid drink challenge: Esophageal body contractility: normal deglutitive inhibition (DCI <100 mmHg*s*cm) during the maneuver Integrated relaxation pressure: 5 mmHg (normal <12 mmHg) System Support Analyst swallow: Impressions based on [place] Classification v4.0: EGJ outflow obstruction with hypercontractile features. This finding may or may not have clinical significance and may not represent a true esophageal motility disorder. This manometric finding can be seen with subtle peptic stricture or Schatzki ring; narcotic use; central obesity; hiatal hernia; eosinophilic esophagitis; infiltrative diseases; or catheter artifact (false positive). If dysphagiaand/or chest pain are primary symptoms, consider upper endoscopy and/or barium esophagram (achalasia protocol with double contrast and timed upright barium components) to exclude structural causes such as subtle peptic stricture or Schatzki ring or eosinophilic esophagitis as well as bolus clearance, if not already performed. Consider a referral to the [facility] for Gastrointestinal Motility, Esophageal, and Swallowing Disorders for an office consultation. *These findings assume that mechanical obstruction has been ruled out. Abner Hong MD, FRCPC Section of Gastroenterology and Hepatology [facility] [address] [place], [place] [address] V: [phone] F: [phone] CC/EC: Safia Pedroza APRN [address] [place] [address] documented in this encounter Plan of Treatment Not on file documented as of this encounter Visit Diagnoses Diagnosis Pyrosis Heartburn Heartburn documented in this encounter Care Teams Awning Maker And Installer Relationship Specialty Start Date End Date Safia Pedroza APRN PCP - General Family Medicine 09/24/19 documented as of this encounter
--- OUTSIDE RECORDS SUMMARY | 2024-08-09 15:04 | XMS_ITS | Encounter Summary ---
[place] [address] Care Team Providers Care Abrasive Grader Helper Name Role Phone Safia Pedroza APRN Primary Care Provider [phone] Encounter Details Date Type Department Care Team (Late st Contact Info) Description 10/16/2020 Abstract Cardiology at [address] [place] [id number] Francia Garcia, RN Social History Tobacco Use Types Packs/Day [...] on filedocumented in this encounter Care Teams Abrasive Grader Helper Relationship Specialty Start Date End Date Safia Pedroza APRN PCP - General Family Medicine 09/24/19 documented as of this encounter
--- OUTSIDE RECORDS SUMMARY | 2024-08-09 15:04 | XMS_ITS | Encounter Summary ---
Author Organization [facility] [place] [address] Care Team Providers Care Metal Bench Patternmaker Name Role Phone Safia Pedroza APRN Primary Care Provider [phone] Encounter Details Date Type Department Care Team (Late st Contact Info) Description 12/13/2020 Telephone Dermatology at [facility] [address] [place] [phone] Kira Ruggiero, RN Social History Tobacco Use Types Packs/Day [...] encounter Miscellaneous Notes * Telephone Encounter - Kira Ruggiero, RN - 12/13/2020 4:40 PM EDT Unable to reach patient to complete Mohs pre procedure questionnaire. Left a message for patient toplease call at their earliest convenience. Kira Ruggiero, RN documented in this encounter Plan of Treatment Not on file documented as of this encounter Visit Diagnoses Not on filedocumented in this encounter Care Teams Metal Bench Patternmaker Relationship Specialty Start Date End Date Safia Pedroza APRN PCP - General Family Medicine 09/24/19 documented as of this encounter
--- OUTSIDE RECORDS SUMMARY | 2024-08-09 15:04 | XMS_ITS | Encounter Summary ---
Author Organization [facility] Address [address] [place] [address] Care Team Providers Care Data Integration Architect Name Role Phone Unavailable Primary Care Provider Unavailabl e Encounter Details Date Type Department Care Team (Late st Contact Info) Description 05/04/2002 Results Only [facility] conversion [address] [place] [address] Anitha Vale, SALESPERSON [facility] [address] [place], [place] [phone] Social History Tobacco Use Types Packs/Day Years [...] Priority Date/Time Associated Diagnosis Comments CYTOPATHOLOGY Routine 05/04/2002 0:00 EDT documented in this encounter Results * CYTOPATHOLOGY (05/04/2002 0:00 EDT) Pathology Report: CYTOPATHOLOGY REPORT Reports generated via electronic interface contain original data; however they are lacking the format of the original report. Caution should be taken when reading/interpreti ng unformatted reports. Name: ? ALTAGRACIA ZAMAN ? Accession #: ? [id number] : ? 1960 (Age: 41) ??F ?Collect Date: ? 05/04/2002 Location: ? [facility] ? Receive Date: ? 05/06/2002 Provider: ?ANITHA VALE SALESPERSON FURNITURE Copy to: ? Specimen/Source: ?ThinPrep Pap Test, Cervix/Endocervix Last Menstrual Period: ? 04/24/02 ? SPECIMEN ADEQUACY ? Satisfactory for Evaluation - transformation zone component present GENERAL CATEGORIZATION ? Negative for Intraepithelial Lesion or Malignancy ? Document reviewed and electronically signed by: ? LESVIA Baptiste(ASCP) ? Report Date: ??05/06/2002 12:30 End of Report TERRELL MENDIOLA 05/04/2002 05/06/2002 us Anitha Vale NP PATHOLOGY ORDERABLES Final Resu lt TERRELL MENDIOLA [address] [place] [address] documented in this encounter Visit Diagnoses Not on filedocumented in this encounter
[2024-08-09 17:25] LABS: ALT 17 U/L (14-59); AST 25 U/L (15-37); Albumin 4.4 g/dL (3.4-5.0); Alkaline Phosphatase 110 U/L (46-116); BUN 10 mg/dL (7-18); Bilirubin, Total 0.56 mg/dL (0.2-1.0); CREATININE 1.1 mg/dL (0.55-1.02); Calcium 9.9 mg/dL (8.5-10.1); Calculated LDL 103 mg/dL (<100); Chloride 103 mmol/L (98-107); Cholesterol 200 mg/dL (<200); Estimated GFR 55.42 (mL/min/1.73m2); Glucose 95 mg/dL (74-106); HDL Cholesterol 77 mg/dL (40-60); Magnesium 2.3 mg/dL (1.8-2.4); Sodium 139 mmol/L (136-145); Total Protein 7.8 g/dL (6.4-8.2); Triglyceride 103 mg/dL (<150); Vitamin B12 411 pg/mL (193-986)
[2024-08-09 17:37] LABS: Anion Gap 12.1 mmol/L (3-11); CO2 23.9 mmol/L (21.0-32.0)
== END 2024-08-09 14:52 | disposition home or self-care (01) ==
LOC: NCHCN 14:51
PROVIDERS: PCP Nurse Practitioner Family; Visit Provider Nurse Practitioner Family
DX: R79.9 Abnormal finding of blood chemistry, unspecified (principal)
CPT/HCPCS: 80053; 80061; 82607; 83735

== ENCOUNTER 2025-05-23 18:59 | Outpatient (REF) | payer MEDICARE, SELFPAY ==
[2025-05-23 19:13] LABS: Hemoglobin A1C 5.3 % (<5.7)
[2025-05-23 19:15] LABS: Calculated LDL 115 mg/dL (<100); Cholesterol 213 mg/dL (<200); HDL Cholesterol 83 mg/dL (>or=50); Triglyceride 77 mg/dL (<150)
== END 2025-05-23 19:00 | disposition home or self-care (01) ==
LOC: NCHCN 18:59
PROVIDERS: PCP Nurse Practitioner Family; Visit Provider Nurse Practitioner Family
DX: E78.2 Mixed hyperlipidemia (principal); Z83.3 Family history of diabetes mellitus
CPT/HCPCS: 80061; 83036